=== PATIENT | male | born 1995 | race Hispanic/Latino ===

== ENCOUNTER 2019-09-28 22:35 | Emergency (ER) | payer OTHER ==
[~2019-09-28] VITALS: Ht 188 cm; Wt 61.2 kg
--- NOTE | 2019-09-28 23:00 | Emergency Department Note ---
History of Present Illnes History of Present Illness Chief Complaint: Extremity Trauma/Pain History of Present Illness This is a 23 year old male, with no significant past medical history, who states that he was out with friends this evening, became angry, and hit a metal light post with his right hand. He presents with pain, swelling, and a small laceration of the dorsum of the right hand. The injury occurred approximately 1 hour prior presentation. Patient has not taken anything for the pain. He denies any previous broken bones, or injuries due to lack of anger management. Historian: Patient Arrival Mode: Car Feed Adviser Required: No Onset (how long ago): hour(s) (1) Location: right hand Quality: pain, swelling Radiation: Reports non-radiation Severity: moderate Onset quality: sudden Duration (how long): hour(s) (1) Timing of current episode: constant Progression: unchanged Chronicity: new Context: Reports trauma/injury (see HPI) Relieving factors: none Exacerbating factors: none Associated symptoms: Reports denies other symptoms Treatments prior to arrival: none Past Medical/Family History Physician Review I have reviewed the patient's past medical and family history. Any updates have been documented here. Past Medical History Recent Fever: No Clinical Suspicion of Infectio: No New/Unexplained Change in Ment: No Other Medical History: - Spontaneous Pneumothorax x 3, in 2019 Other Surgery: ? Surgery on lungs, due to PTX Social History Smoking Cessation: Never Smoker Alcohol Use: Occasional Any Illegal Drug Use: No TB Exposure/Symptoms: No Physically hurt or threatened: No Family History Family history of heart diseas: No Other Last Tetanus: 8 years ago Any Pre-Existing Lines (PICC,: No Is patient up to date on immun: Yes Review of Systems Review of Systems Constitutional: Denies chills, Denies fever EENTM: Reports no symptoms Cardiovascular: Reports no symptoms Respiratory: Reports no symptoms Gastrointestinal: Reports no symptoms Musculoskeletal: Reports as per HPI Integumentary: Reports other (small laceration on the dorsum of the right mid- hand, between the 4th and 5th metacarpals) Neurological: Denies numbness, Denies paresthesia, Denies tingling, Denies weakness Psychological: Reports no symptoms Hematological/Lymphatic: Reports no symptoms Review of other systems: All other systems negative Physical Exam Related Data Allergies: Coded Allergies: No Known Allergies (Unverified , 09/29/19) Vital signs reviewed: Yes Physical Exam CONSTITUTIONAL Constitutional: Present well-developed, Present well-nourished HENT HENT: Present normocephalic, Present atraumatic, Present oropharynx clear/moist, Present nose normal HENT L/R: Present left ext ear normal, Present right ext ear normal EYES Eyes: Reports PERRL, Reports conjunctivae normal NECK Neck: Present ROM normal PULMONARY Pulmonary: Present effort normal, Present breath sounds normal CARDIOVASCULAR Cardiovascular: Present regular rhythm, Present heart sounds normal, Present capillary refill normal, Present normal rate GASTROINTESTINAL GENITOURINARY SKIN Skin: Present warm, Present dry, Present other (4 mm horizontal, superficial lac, on dorsum of right hand, between the 4th and 5th metacarpals, with no tissue or bone exposed) MUSCULOSKELETAL Musculoskeletal: Present deformity (4th and 5th MCPs depressed, with surrounding soft tissue swelling, ecchymosis and ttp; ), Present tenderness, Present swelling; Absent ROM normal (unable to fully flex the right 4th and 5th metacarpals;) NEUROLOGICAL Neurological: Present alert, Present oriented x 3, Present no gross motor or sensory deficits PSYCHOLOGICAL Psychological: Present mood/affect normal, Present judgement normal Results Imaging Imaging results reviewed: Yes Imaging Comments [place] [id number] Patient Name: PEARL RONQUILLO MR #: [id number] : 1995 Age/Sex: 23/M Req #: [id number] Adm Physician: Ordered by: SHERIDAN JOLLEY MD Report #: [id number] Location: [facility] Room/Bed: Procedure: [id number] HOPD/HAND 3 VIEW RT - HOPD Exam Date: 09/28/19 Exam Time: 2305 REPORT STATUS: Signed X-ray right hand 3 views HISTORY: Pain. COMPARISON: None available. FINDINGS: Bones: Mildly displaced fifth metacarpal shaft fracture and minimally displaced fourth metacarpal shaft fracture. Joints: The joint spaces are well-maintained. Soft tissues: Soft tissue swelling about the hand. IMPRESSION: Mildly displaced fifth metacarpal shaft fracture and minimally displaced fourth metacarpal shaft fracture. Signed by: Yosvany Medina DO on 09/28/2019 11:31 PM Dictated By: YOSVANY MEDINA DO 30 Transcribed By: ZI on 09/28/192330 COPY TO: SHERIDAN JOLLEY MD~ Procedures Procedures Procedure: 23:35 - boxer splint was applied by Nando Mcnally RN, with good placement. Splint was checked by me, and patient was neurovascular intact. A sling was also applied, and patient was comfortable. Patient tolerated procedure well. Assessment & Plan Medical Decision Making MDM - Patient received a dose of Ancef 1 g IM, due to the small, open wound on the dorsum of the right hand. There was no bony protrusion or soft tissue expulsion at this site. It appears to occurred to the force of the blow to the right hand. He will complete a course of cephalexin, as well. Infection precautions were discussed. - For pain, you may take the Tylenol with codeine, as prescribed. You may take Ibuprofen 200 mg3 tablets every 6 hours as needed for breakthrough pain. - Contact either Hand Surgery or Orthopedic Surgery TOMORROW, [phone] for a follow-up appointment for definitive management of the fractures in the right hand. This is VERY important! - Complete all of the antibiotics prescribed, for the open cut on the right hand. Follow-up if you develop any fever, chills, or worsening hand pain. - Keep the right hand elevated to the level of the heart, as much as possible, to help with pain and swelling. Reassessment Reassessment - Wound on the dorsum of the right hand was thoroughly cleaned using chlorhexidine, dry, bacitracin applied, followed by a Band-Aid. -Boxer Splint was placed on the right hand and forearm by Nando Mcnally RN, see the splint note. Assessment & Plan Final Impression: (1) Fracture of shaft of fourth metacarpal bone of right hand (2) Fracture of shaft of fifth metacarpal bone of right hand (3) Laceration of right hand (4) Hand pain, right Depart Disposition: HOME, SELF-detention Meds Active Scripts Cephalexin (CEPHALEXIN) 500 Mg Capsule, 500 MG PO TID for infection for 10 Days, #30 CAP 0 Refills Prov:SHERIDAN JOLLEY MD 09/29/19 Acetaminophen With Codeine (TYLENOL WITH CODEINE #3 TABLET) 1 Each Tablet, 1-2 TAB PO Q6H PRN for pain, #20 TAB 0 Refills DO NOT take and drive or operate machinery. Prov:SHERIDAN JOLLEY MD 09/29/19 SHERIDAN JOLLEY MD Sep 28, 2019 23:00
[2019-09-28] MEDS ORDERED: IBUPROFEN 600 MG TAB PO STA (23:01)
[2019-09-28] MEDS ORDERED: IBUPROFEN 600 MG TAB ONE (23:34)
--- NOTE | 2019-09-28 23:34 | Diagnostic Imaging Report ---
X-ray right hand 3 views HISTORY: Pain. COMPARISON: None available. FINDINGS: Bones: Mildly displaced fifth metacarpal shaft fracture and minimally displaced fourth metacarpal shaft fracture. Joints: The joint spaces are well-maintained. Soft tissues: Soft tissue swelling about the hand. IMPRESSION: Mildly displaced fifth metacarpal shaft fracture and minimally displaced fourth metacarpal shaft fracture. Signed by: Yosvany Medina DO on 09/28/2019 11:31 PM
[2019-09-28] MEDS ORDERED: NEOMYCIN/POLYMYX/BACITR OINT 0.9 GM PKT ONE (23:35)
--- OUTSIDE RECORDS SUMMARY | 2019-09-28 23:35 | XMS REPORT | Continuity of Care Document ---
Author Author [employer] PEARL Whitlock MA Organization [facility] Address Unknown Phone Unavailable Care Team Providers Care Registered Nurses Name Role Phone [employer] Unavailable Un available Problems Problem Status Onset Date Classification Date Reported Comments Source Pneumohemothorax Active 12/24/2012 [facility] Medications Medication Details Route Status Patient Instructions Ordering Provider Order Date Source No Reported Medications (Acti ve) Active [facility] Allergies, Adverse Reactions, Alerts Substance Category Reaction Severity Reaction type Status Date Reported Comments Source No Known Drug Allergies drug a llergy drug aller gy Active [facility] Immunizations No Data Provided for This Section Results No Data Provided for This Section Pathology Reports No Data Provided for This Section Diagnostic Reports No Data Provided for This Section Consultation Notes No Data Provided for This Section Discharge Summaries No Data Provided for This Section History and Physicals No Data Provided for This Section Vital Signs No Data Provided for This Section Encounters Location Location Details Encounter Type Encounter Number Reason For Visit Attending Provider ADM Date DC Date Status Source AUDIT [id number] 12/24/2012 12/24/2012 [facility] Procedures No Data Provided for This Section Assessment and Plan No Data Provided for This Section Plan of Care No Data Provided for This Section Social History Social History Date Source Never A Smoker (Active) 12/24/2012 [facility] Family History No Data Provided for This Section Advance Directives Order Name Results Value Date Source Advance Directives Advance Dir ectives No Advance Directives available. 12/24/2012 [facility] Functional Status No Data Provided for This Section
--- OUTSIDE RECORDS SUMMARY | 2019-09-28 23:36 | XMS REPORT | Continuity of Care Document ---
Author Author [facility] t Organization [facility] Address [address] [place] [address] Phone Unavailable Care Team Providers Care Health Safety Manager Name Role Phone TRINIDADBENJAMINTatiana Raychristiana Unavailable Payers Payer Name Policy Type Policy Number Effective Date Expiration Date S ource Problems Condition Name Condition Details Condition Category Status Onset Date Resolution Date Last Treatment Date Treating Clinician Comments Source Pneumohemothorax Pneu mohemothorax Active 12/24/2012 [facility] Problem Active 2012-12-24 07:55:08 M ryan Boo Allergies, Adverse Reactions, Alerts Allergy Name Allergy Type Status Severity Reaction(s) Onset Date Inacti ve Date Treating Clinician Comments Source BLOOD DA Active U 2018-07-22 00:00:00 [facility] No Known Allergies DA Active U 2018-07-22 00:00:00 [facility] NKDA DA Active U 2018-07-22 00:00:00 [facility] BLOOD. PT IS LATTER-DAY AND CAN'T GET TRANSFUSION DA A ctive U 2018-07-18 00:00:00 [facility] No Known Allergies DA Active U 2018-07-16 00:00:00 [facility] No Known Drug Allergies No Known Drug Allergies Active [facility] Rajeev Social History Social Habit Start Date Stop Date Quantity Comments Source Social History 2012-12-24 07:55:08 2012-12-24 07:55:08 [facility] Medications Ordered Medication Name Filled Medication Name Start Date Stop Da te Current Medication? Ordering Clinician Indication Dosage Frequency Signature (SIG) Comments Components Source No Reported Medications 2012-12-24 07:55:08 Yes (Active) Joao Boo Procedures This patient has no known procedures. Encounters Start Date/Time End Date/Time [facility]counter Type [facility] ID Source 2019-02-10 22:27:00 2019-02-10 22:27:00 Emergency E [facility] [id number] [facility] 2012-12-24 01:55:08 2012-12-24 01:55:[address] [facility] [id number] Results Test Description Test Time Test Comments Results Result Comments Source HAND 3 VIEW RT - HOPD 2019-09-28 23:30:00 [facility] [address] [place] [address] Patient Name: PEARL RONQUILLO MR #: [id number] : 1995 Age/Sex: 23/M Req #: [id number] Adm Physician: Ordered by: SHERIDAN JOLLEY MD Report #: [id number] Location: [facility] Room/Bed: Procedure: [id number] HOPD/HAND 3 VIEW RT - HOPD Exam Date: 09/28/19 Exam Time: 2305 REPORT STATUS: Signed X-ray right hand 3 views HISTORY: Pain. COMPARISON: None available. FINDINGS: Bones: Mildly displaced fifth metacarpal shaft fracture and minimally displaced fourth metacarpal shaft fracture. Joints: The joint spaces are well-maintained. Soft tissues: Soft tissue swelling about the hand. IMPRESSION: Mildly displaced fifth metacarpal shaft fracture and minimally displaced fourth metacarpal shaft fracture. Signed by: Yosvany Elizalde DO on 09/28/2019 11:31 PM Dictated By: YOSVANY ELIZALDE DO 30 Transcribed By: ZI on 09/28/192330 COPY TO: SHERIDAN JOLLEY MD SURGICAL SPECIMENS 2018-07-24 10:43:00 RUN DATE: 07/24/18 [facility] *LIVE* PAGE 1 RUN TIME: 1043 Specimen Inquiry RUN USER: INTERFACE PATIENT: PEARL FERRARA LOC: Radha.CVN1 U #: [id number] AGE/SX: 22/M ROOM: [facility] RE07/17/18REG DR: Cole Cordoba MD : [birth year] BED: 1 DIS: 07/23/18 STATUS: DIS IN TLOC: SPEC #: [id number] RECD: 07/22/18 STATUS: [place] SNEED #: [id number] CAS: 07/22/18 [facility] [address]: Cole Cordoba MD ENTERED: 07/24/18 SP TYPE: SURG SPEC OTHR DR: No Primary or Family Physician Self Referred Leonel Oro MD, Kevin MD Terminella, Luigi MDORDERED: GM LEVEL 4 CODES: [id number] - LUNG, NOS COPIES TO: No Primary or Family Physician Self Referred Leonel Oro MD [address] [place] [address] Nav Washburn MD [address] [place] [address] Marcus Benavidez MD [address] [place] [address] Cole Cordoba MD [address] [place] [address] PROCEDURES: GM LEVEL 4 (Incomplete) TISSUES: 1. LUNG, NOS - Lung, right pleura, excision CONTINUED ON NEXT PAGE RUN DATE: 07/24/18 [facility] *LIVE* PAGE 2 RUN TIME: 1043 Specimen Inquiry RUN USER: INTERFACE SPEC #: [id number] PATIENT: PEARL FERRARA #[id number] (Continued) FINAL DIAGNOSIS Lung, right pleura, excision: Dense fibrous tissue with mild inflammation and some fibrosis. GROSS AND MICROSCOPIC GROSS EXAMINATION: Received in formalin labeled right pleura is a 5.2 cm aggregate of purple frankel smooth fibrous tissue with attached adipose. Submitted (A)-(B). MICROSCOPIC EXAMINATION: Sections of the lung pleura reveal dense fibrous tissue with mild inflammation including some eosinophils consistent with history of pneumothorax. POST-OP DIAGNOSIS None given PRE-OP DIAGNOSIS Spontaneous pneumothorax Signed SIGNATURE ON FILE LupeCornell Baca DO 07/24/18 1043 END OF REPORT - XR CHEST 1 V 2018-07-23 05:38:00 FAX: Fang Alicia [phone] [place]: St: ADM FAX: Cole Al MD [phone] Name: PEARL FERRARA [facility] : 1995 Age/S: 22/M [address] [place] [address] Unit #: [id number] Loc: [address] [place] [address] Phys: Yudith Alicia NP Acct: [id number] Dis Date: Status: ADM IN PHONE #: [phone] Exam Date: 07/23/2018519 FAX #: [phone] Reason: S/P Thoracotomy EXAMS: CPT CODE: [id number] XR CHEST 1 V 50477 PROCEDURE: Chest, AP on 07/23/2018 at 0442 hours. INDICATION: Status post thoracotomy. Recurrent spontaneous right-sided pneumothorax. COMPARISON: Chest radiographs dated 07/22/2018. FINDINGS: Support tubes, catheters, devices: Large bore right-sided chest tubes have been removed. Small right pneumothorax is stable. The pneumothorax within the right upper chest measures 16 mm in thickness. Right perihilar and basilar density is stable. Left lung is clear. There is stable mild density in the right apical lung. Cardiac silhouette is not enlarged. Stable mediastinum. IMPRESSION: 1. Right-sided large bore chest tubes have been removed. Stable small right pneumothorax. 2. Stable opacities within the right lower chest and right apical lung. SL: MAXIMINO at 0538 Reported and signed by: Ronny Iglesias M.D. CC: Yudith Alicia NP; Cole Cordoba MD Technologist: Mike Clarke, RT(R); Susana Gracia RT(R) Trnscrd Date/Time/By: 07/23/2018 (0538) : By: [email or web address] Orig Print D/T: S: 07/23/2018 (0550) PAGE 1 Signed Report - XR CHEST 1 V 2018-07-22 14:09:00 FAX: Fang Alicia [phone] [place]: St: ADM FAX: Cole Al MD [phone] Name: PEARL FERRARA [facility] : 1995 Age/S: 22/M [address] [place] [address] Unit #: [id number] Loc: [address] [place] [address] Phys: Yudith Alicia NP Acct: [id number] Dis Date: Status: ADM IN PHONE #: [phone] Exam Date: 07/22/2018 1409 FAX #: [phone] Reason: F/U PNEUMOTHORAX EXAMS: CPT CODE: [id number] XR CHEST 1 V 34011 Clinical Indication: Follow-up pneumothorax Comparison: Chest radiograph performed earlier today FINDINGS: Stable position of 2 right-sided chest tubes. Stable small right hydropneumothorax with postsurgical changes at the right lung apex. Right basilar airspace opaci ty likely represents atelectasis. The left lung is clear. The cardiac silhouette is within normal limits of size. Midline trachea. No acute osseous abnormalities. IMPRESSION: Stable small right hydropneumothorax. SL: WR2-H at 1409 Reported and signed by: Solitario Stevens M.D. CC: Yudith Dukes NP; Cole Cordoba MD Technologist: Stewart Castellon RT(R) Trnscrd Date/Time/By: 07/22/2018 (9398) : By: [email or web address] Orig Print D/T: S: 07/22/2018 (0179) PAGE 1 Signed Report - XR CHEST 1 V 2018-07-22 09:08:00 FAX: Fang Alicia [phone] [place]: St: ADM FAX: Cole Al MD [phone] Name: PEARL FERRARA [facility] : 1995 Age/S: 22/M [address] [place] [address] Unit #: [id number] Loc: [address] [address] Phys: Yudith Alicia NP Acct: [id number] Dis Date: Status: ADM IN PHONE #: [phone] Exam Date: 07/22/2018 0549 FAX #: [phone] Reason: S/P Thoracotomy EXAMS: CPT CODE: [id number] XR CHEST 1 V 18061 EXAM: XR CHEST 1 VIEW DATE: 07/22/2018 5:00 AM : 1995; Age: 22 years y/o Male INDICATION: S/P Thoracotomy COMPARISON: July 21, 2018 TECHNIQUE: AP chest. FINDINGS/ IMPRESSION: Lines, tubes and hardware: Stable right-sided chest tubes. Heart, mediastinum and lungs: The heart size is normal for technique. The mediastinal contours are normal. Pulmonary vascularity is normal. Stable small right apical pneumothorax. Right lung base and right apical atelectatic changes. SL: [id number] at 0908 Reported and signed by: Peter Duque D.O. CC: Yudith Alicia NP; Cole Cordoba MD Technologist: Mike Clarke, RT(R); Susana Gracia RT(R) Trnscrd Date/Time/By: 07/22/2018 (08) : By: [email or web address] Orig Print D/T: S: 07/22/2018 (1551) PAGE 1 Signed Report - XR CHEST 1 V 2018-07-22 09:07:00 FAX: Fang Alicia [phone] [place]: St: [facility] FAX: Cole Al MD [phone] Name: PEARL FERRARA [facility] : 1995 Age/S: 22/M [address] [place] [address] Unit #: [id number] Loc: G.[address] [place] [address] Phys: Yudith Alicia NP Acct: [id number] Dis Date: Status: ADM IN PHONE #: [phone] Exam Date: 07/22/2018 0908 FAX #: [phone] Reason: F/U PNEUMO. EXAMS: CPT CODE: [id number] XR CHEST 1 V 19283 EXAM: XR CHEST 1 VIEW DATE: 07/22/2018 12:00 PM : 1995; Age: 22 years y/o Male INDICATION: F/U PNEUMO. COMPARISON: July 22, 2018 at 451 TECHNIQUE: AP chest. FINDINGS/ IMPRESSION: Lines, tubes and hardware: Stable right- sided chest tubes. Heart, mediastinum and lungs: The heart size is normal for technique. The mediastinal contours are normal. Pulmonary vascularity is normal. Stable small right apical pneumothorax. Right lung base and right apical atelectatic changes. SL: [id number] at 0907 Reported and signed by: Peter Duque D.O. CC: Yudith Alicia MAINTENANCE WORKER; Cole Cordoba MD Technologist: Annette Mccauley RT(R) Trnscrd Date/Time/By: 07/22/2018 (0907) : By: [email or web address] Orig Print D/T: S: 07/22/2018 (1667) PAGE 1 Signed Report BASIC METABOLIC PANEL 2018-07-22 07:40:00 Test Item SODIUM (test code = NA) 137 mEq/L 134-147 N POTASSIUM (test code = K) 4.0 mEq/L 3.4-5.0 N CHLORIDE (test code = CL) 103 mEq/L 100-108 N CARBON DIOXIDE (test code = CO2) 29 mEq/L 21-33 N ANION GAP (test code = GAP) 9 0-20 N GLUCOSE (test code = GLU) 87 mg/dL 70-110 N BLOOD UREA NITROGEN (test code = BUN) 10 mg/dL 7-18 N GLOMERULAR FILTRATION RATE (test code = GFR) 143.8 110-120 H Units of measure = ml/min/1.73 m2 CREATININE (test code = CREAT) 0.7 mg/dL 0.6-1.3 N CALCIUM (test code = CA) 8.6 mg/dL 8.0-10.5 N CBC W/AUTO [id number] 06:50:00* Test Item Value Reference Range Interpretation Comments WHITE BLOOD CELL (test code = WBC) 11.13 x10 3/uL 4.5-11.0 H RED BLOOD CELL (test code = RBC) 4.47 x10 6/uL 4.00-5.60 N HEMOGLOBIN (test code = HGB) 13.9 g/dL 12.5-16.9 N HEMATOCRIT (test code = HCT) 41.5 % 37.5-50.7 N MEAN CELL VOLUME (test code = MCV) 92.8 fL 81.0-99.0 N MEAN CELL HGB (test code = MCH) 31.1 pg 27.0-33.0 N MEAN CELL HGB CONCETRATION (test code = MCHC) 33.5 g/dL 33.0-37. 0 N RED CELL DISTRIBUTION WIDTH CV (test code = RDW) 12.7 % 11.5- 14.5 N RED CELL DISTRIBUTION WIDTH SD (test code = RDW-SD) 43.8 fL 37 .0-54.0 N PLATELET COUNT (test code = PLT) 232 x10 3/uL 150-400 N MEAN PLATELET VOLUME (test code = MPV) 9.3 fL 7.0-9.0 H NEUTROPHIL % (test code = NT%) 64.2 % 56.0-77.0 N IMMATURE GRANULOCYTE % (test code = IG%) 0.4 % 0.0-2.0 N LYMPHOCYTE % (test code = LY%) 19.4 % 14.0-32.0 N MONOCYTE % (test code = MO%) 11.9 % 4.8-9.0 H EOSINOPHIL % (test code = EO%) 3.7 % 0.3-3.7 N BASOPHIL % (test code = BA%) 0.4 % 0.0-2.0 N NUCLEATED RBC % (test code = NRBC%) 0.0 % 0-0 N NEUTROPHIL # (test code = NT#) 7.14 x10 3/uL 2.0-7.6 N IMMATURE GRANULOCYTE # (test code = IG#) 0.04 x10 3/uL 0.00-0.03 H LYMPHOCYTE # (test code = LY#) 2.16 x10 3/uL 1.0-3.8 N MONOCYTE # (test code = MO#) 1.33 x10 3/uL 0.1-0.8 H EOSINOPHIL # (test code = EO#) 0.41 x10 3/uL 0.0-0.2 H BASOPHIL # (test code = BA#) 0.05 x10 3/uL 0.0-0.2 N NUCLEATED RBC # (test code = NRBC#) 0.00 x10 3/uL 0.0-0.1 N MANUAL DIFF REQUIRED (test code = MDIFF) NO - XR CHEST 1 [id number] 08:03:00 FAX: Fang Alicia [phone] [place]: St: ADM FAX: Cole Al MD [phone] Name: ALEM,PEARL [facility] : 1995 Age/S: 22/M [address] [place] [address] Unit #: [id number] Loc: [address] [place] [address] Phys: Yudith Alicia MAINTENANCE WORKER Acct: [id number] Dis Date: Status: ADM IN PHONE #: [phone] Exam Date: 07/21/2018 0647 FAX #: [phone] Reason: S/P Thoracotomy EXAMS: CPT CODE: [id number] XR CHEST 1 V 53992 Chest single view 07/21/2018 HISTORY: Status post thoracotomy Comparison is made to 07/20/2018 FINDINGS: The right apical pneumothorax is unchanged. There is a new airspace opacity in the right lung apex. Left lung remains clear. Heart size is within normal limits. Aorta is unchanged. No interstitial edema is noted. Right chest tubes are stable. IMPRESSION: 1. Stable right apical pneumothorax. 2. New small opacity in right lung apex. This may represent atelectasis or pneumonia. SL: [id number] at 0803 Rep orted and signed by: Buck Malik M.D. CC: Yudith Andrade MAINTENANCE WORKER; Cole Cordoba MD Technologist: Emely Elliott, RT(R); Linda Granados, RT(R) Trnazrd Date/Time/By: 07/21/2018 (0803) : By: [email or web address] Orig Print D/T: S: 07/21/2018 (805) PAGE 1 Signed Report BASIC METABOLIC [id number] 05:16:00* Test Item Value Reference Range Interpretation Comments SODIUM (test code = NA) 137 mEq/L 134-147 N POTASSIUM (test code = K) 3.8 mEq/L 3.4-5.0 N CHLORIDE (test code = CL) 102 mEq/L 100-108 N CARBON DIOXIDE (test code = CO2) 30 mEq/L 21-33 N ANION GAP (test code = GAP) 9 0-20 N GLUCOSE (test code = GLU) 102 mg/dL 70-110 N BLOOD UREA NITROGEN (test code = BUN) 10 mg/dL 7-18 N GLOMERULAR FILTRATION RATE (test code = GFR) 143.8 110-120 H Units of measure = ml/min/1.73 m2 CREATININE (test code = CREAT) 0.7 mg/dL 0.6-1.3 N CALCIUM (test code = CA) 8.6 mg/dL 8.0-10.5 N CBC W/AUTO [id number] 04:39:00* Test Item Value Reference Range Interpretation Comments WHITE BLOOD CELL (test code = WBC) 10.84 x10 3/uL 4.5-11.0 N RED BLOOD CELL (test code = RBC) 4.61 x10 6/uL 4.00-5.60 N HEMOGLOBIN (test code = HGB) 14.5 g/dL 12.5-16.9 N HEMATOCRIT (test code = HCT) 42.3 % 37.5-50.7 N MEAN CELL VOLUME (test code = MCV) 91.8 fL 81.0-99.0 N MEAN CELL HGB (test code = MCH) 31.5 pg 27.0-33.0 N MEAN CELL HGB CONCETRATION (test code = MCHC) 34.3 g/dL 33.0-37. 0 N RED CELL DISTRIBUTION WIDTH CV (test code = RDW) 12.7 % 11.5- 14.5 N RED CELL DISTRIBUTION WIDTH SD (test code = RDW-SD) 42.8 fL 37 .0-54.0 N PLATELET COUNT (test code = PLT) 206 x10 3/uL 150-400 N MEAN PLATELET VOLUME (test code = MPV) 9.1 fL 7.0-9.0 H NEUTROPHIL % (test code = NT%) 62.0 % 56.0-77.0 N IMMATURE GRANULOCYTE % (test code = IG%) 0.2 % 0.0-2.0 N LYMPHOCYTE % (test code = LY%) 20.0 % 14.0-32.0 N MONOCYTE % (test code = MO%) 14.7 % 4.8-9.0 H EOSINOPHIL % (test code = EO%) 2.7 % 0.3-3.7 N BASOPHIL % (test code = BA%) 0.4 % 0.0-2.0 N NUCLEATED RBC % (test code = NRBC%) 0.0 % 0-0 N NEUTROPHIL # (test code = NT#) 6.73 x10 3/uL 2.0-7.6 N IMMATURE GRANULOCYTE # (test code = IG#) 0.02 x10 3/uL 0.00-0.03 N LYMPHOCYTE # (test code = LY#) 2.17 x10 3/uL 1.0-3.8 N MONOCYTE # (test code = MO#) 1.59 x10 3/uL 0.1-0.8 H EOSINOPHIL # (test code = EO#) 0.29 x10 3/uL 0.0-0.2 H BASOPHIL # (test code = BA#) 0.04 x10 3/uL 0.0-0.2 N NUCLEATED RBC # (test code = NRBC#) 0.00 x10 3/uL 0.0-0.1 N MANUAL DIFF REQUIRED (test code = MDIFF) NO - XR CHEST 1 [id number] 09:19:00 FAX: Fang Alicia [phone] [place]: St: ADM FAX: Cole Al MD [phone] Name: ALEM,PEARL [facility] : 1995 Age/S: 22/M [address] [place] [address] Unit #: [id number] Loc: [address] [place] [address] Phys: Yudith Alicia MAINTENANCE WORKER Acct: [id number] Dis Date: Status: ADM IN PHONE #: [phone] Exam Date: 07/20/2018 0709 FAX #: [phone] Reason: S/P Thoracotomy EXAMS: CPT CODE: [id number] XR CHEST 1 V 93820 Chest single view 07/20/2018 HISTORY: Thoracotomy Comparison is made to 07/19/2018 FINDINGS: 2 right chest tubes are stable. Right apical pneumothorax is unchanged. Medial right base atelectasis/infiltrate is unchanged. Left lung is clear. Heart size is normal. Aorta is within normal limits. No vascular congestion is noted. IMPRESSION: 1. Stable right apical pneumothorax. 2. Stable right chest tubes. 3. Stable medial right base atele ctasis/infiltrate. SL: [id number] Elect ronically Signed by Jesus Malik on 2018 at 0919 Reported and signed by: Buck Malik M.D. CC: Yudith Alicia MAINTENANCE WORKER; Cole Cordboa MD Technologist: Emely Elliott, RT(R); Linda Granados, RT(R) Trnscrd Date/Time/By: 07/20/2018 (918) : By: [email or web address] Orig Pr int D/T: S: 07/20/2018 (7400) PAGE 1 Signed Report BASIC METABOLIC [id number] 05:04:00* Test Item Value Reference Range Interpretation Comments SODIUM (test code = NA) 135 mEq/L 134-147 N POTASSIUM (test code = K) 3.6 mEq/L 3.4-5.0 N CHLORIDE (test code = CL) 102 mEq/L 100-108 N CARBON DIOXIDE (test code = CO2) 28 mEq/L 21-33 N ANION GAP (test code = GAP) 9 0-20 N GLUCOSE (test code = GLU) 107 mg/dL 70-110 N BLOOD UREA NITROGEN (test code = BUN) 11 mg/dL 7-18 N GLOMERULAR FILTRATION RATE (test code = GFR) 123.2 110-120 H Units of measure = ml/min/1.73 m2 CREATININE (test code = CREAT) 0.8 mg/dL 0.6-1.3 N CALCIUM (test code = CA) 8.5 mg/dL 8.0-10.5 N CBC W/AUTO [id number] 04:48:00* Test Item Value Reference Range Interpretation Comments WHITE BLOOD CELL (test code = WBC) 13.43 x10 3/uL 4.5-11.0 H RED BLOOD CELL (test code = RBC) 4.79 x10 6/uL 4.00-5.60 N HEMOGLOBIN (test code = HGB) 15.0 g/dL 12.5-16.9 N HEMATOCRIT (test code = HCT) 43.2 % 37.5-50.7 N MEAN CELL VOLUME (test code = MCV) 90.2 fL 81.0-99.0 N MEAN CELL HGB (test code = MCH) 31.3 pg 27.0-33.0 N MEAN CELL HGB CONCETRATION (test code = MCHC) 34.7 g/dL 33.0-37. 0 N RED CELL DISTRIBUTION WIDTH CV (test code = RDW) 12.4 % 11.5- 14.5 N RED CELL DISTRIBUTION WIDTH SD (test code = RDW-SD) 41.5 fL 37 .0-54.0 N PLATELET COUNT (test code = PLT) 227 x10 3/uL 150-400 N MEAN PLATELET VOLUME (test code = MPV) 9.4 fL 7.0-9.0 H NEUTROPHIL % (test code = NT%) 69.3 % 56.0-77.0 N IMMATURE GRANULOCYTE % (test code = IG%) 0.6 % 0.0-2.0 N LYMPHOCYTE % (test code = LY%) 15.3 % 14.0-32.0 N MONOCYTE % (test code = MO%) 14.3 % 4.8-9.0 H EOSINOPHIL % (test code = EO%) 0.3 % 0.3-3.7 N BASOPHIL % (test code = BA%) 0.2 % 0.0-2.0 N NUCLEATED RBC % (test code = NRBC%) 0.0 % 0-0 N NEUTROPHIL # (test code = NT#) 9.30 x10 3/uL 2.0-7.6 H IMMATURE GRANULOCYTE # (test code = IG#) 0.08 x10 3/uL 0.00-0.03 H LYMPHOCYTE # (test code = LY#) 2.06 x10 3/uL 1.0-3.8 N MONOCYTE # (test code = MO#) 1.92 x10 3/uL 0.1-0.8 H EOSINOPHIL # (test code = EO#) 0.04 x10 3/uL 0.0-0.2 N BASOPHIL # (test code = BA#) 0.03 x10 3/uL 0.0-0.2 N NUCLEATED RBC # (test code = NRBC#) 0.00 x10 3/uL 0.0-0.1 N MANUAL DIFF REQUIRED (test code = MDIFF) NO - XR CHEST 1 [id number] 13:48:00 FAX: Leonel Rey [phone] [place]: St: ADM FAX: Cole Al MD [phone] Name: PEARL FERRARA [facility] : 1995 Age/S: 22/M [address] [place] [address] Unit #: [id number] Loc: [address] [address] Phys: Leonel Oro MD Acct: [id number] Dis Date: Status: ADM IN PHONE #: [phone] Exam Date: 07/19/2018 1255 FAX #: [phone] Reason: S/P VATS EXAMS: CPT CODE: [id number] XR CHEST 1 V 95064 EXAM: XR CHEST 1 VIEW DATE: 07/19/2018 12:13 PM : 1995; Age: 22 years y/o Male INDICATION: S/P VATS COMPARISON: July 18, 2018 TECHNIQUE: AP chest. FINDINGS/ IMPRESSION: Lines, tubes and hardware: Two separate right- sided chest tubes are seen with tip overlying the right medial upper thorax and right mid thorax. Heart, mediastinum and lungs: The heart size is normal for technique. The mediastinal contours are normal. Interval significant improvement in the aeration of the right lung, status post VATS. Small opacity is noted involving the right lung apex, which may represent atelectasis. Minimal right lung base airspace disease. No significant right pneumothorax is seen. SL: [id number] at 1406 Reported and signed by: Peter Duque D.O. CC: Leonel Oro MD; Cole Cordoba MD Technologist: RT Daniel(R) Trnscrd Date/Time/By: 07/19/2018 (3655) : By: [email or web address] Orig Print D/T: S: 07/19/2018 (1023) PAGE 1 Signed Report BASIC METABOLIC [id number] 13:03:00* Test Item Value Reference Range Interpretation Comments SODIUM (test code = NA) 138 mEq/L 134-147 N POTASSIUM (test code = K) 4.1 mEq/L 3.4-5.0 N CHLORIDE (test code = CL) 105 mEq/L 100-108 N CARBON DIOXIDE (test code = CO2) 26 mEq/L 21-33 N ANION GAP (test code = GAP) 11 0-20 N GLUCOSE (test code = GLU) 114 mg/dL 70-110 H BLOOD UREA NITROGEN (test code = BUN) 9 mg/dL 7-18 N GLOMERULAR FILTRATION RATE (test code = GFR) 107.6 110-120 L Units of measure = ml/min/1.73 m2 CREATININE (test code = CREAT) 0.9 mg/dL 0.6-1.3 N CALCIUM (test code = CA) 8.5 mg/dL 8.0-10.5 N HGB [id number] 12:56:00* Test Item Value Reference Range Interpretation Comments HEMOGLOBIN (test code = HGB) 16.3 g/dL 12.5-16.9 N HEMATOCRIT (test code = HCT) 47.6 % 37.5-50.7 N COMMENTS: On admissionARTERIAL BLOOD [id number] 12:35:00* Test Item Value Reference Range Interpretation Comments ARTERIAL BLOOD GAS PH (test code = PHA) 7.302 7.35-7.45 L ARTERIAL BLOOD GAS PCO2 (test code = PCO2A) 49.5 mmHg 35-45 H ARTERIAL BLOOD GAS PO2 (test code = PO2A) 66 mmHg 80-100 L BICARBONATE TOTAL HCO3 (test code = HCO3) 24.5 mmol/L 22.0-26.0 N BASE EXCESS (test code = PAUL) -2.0 mmol/L -4-4 N ABG O2 SATURATION (test code = SATA) 91 % 90-100 N ABG DELIVERY (test code = ADILIA) Room Air Performed by certified band scroll saw operator at [facility] ABG TEMPERATURE (test code = TEMPA) 98.0 F ABG SITE (test code = SITEA) Art line TCO2 ARTERIAL (test code = TCO2A) 26 PROTHROMBIN [id number] 09:06:00* Test Item Value Reference Range Interpretation Comments PROTHROMBIN TIME PATIENT (test code = PTP) 14.0 SECONDS 9.3-12.9 H INTERNATIONAL NORMAL RATIO (test code = INR) 1.2 0.8-1.2 N TARGET INR BY INDICATION Indication INR1. Prophylaxis of venous thrombosis 2.0 - 3.0 (orthopedic surgery), Prophylaxis of venous thrombosis (other than high-risk surgery), Treatment of Deep Vein Thrombosis/Pulmonary Embolism, Prevention of systemic embolism - Tissue heart valves, Acute Myocardial Infarction (to prevent systemic embolism), Valvular heart disease, Atrial Fibrillation, Bileaflet mechanical valve in aortic position.2. Mechanical prosthetic valves (high risk), 2.5 - 3.5 Presence of Lupus Anticoagulant or Antiphospholipid Antibodies, Prevention of systemic embolism - Acute Myocardial Infarction (to prevent recurrent infarct). THROMBOPLASTIN TIME [id number] 09:06:00* Test Item Value Reference Range Interpretation Comments THROMBOPLASTIN TIME PARTIAL (test code = PTT) 29.9 Seconds 25.0-39. 5 N Therapeutic Range: 50.4 - 88.3 Seconds Effective 05/21/2018 BASIC METABOLIC [id number] 09:06:00* Test Item Value Reference Range Interpretation Comments SODIUM (test code = NA) 135 mEq/L 134-147 N POTASSIUM (test code = K) 3.9 mEq/L 3.4-5.0 N CHLORIDE (test code = CL) 100 mEq/L 100-108 N CARBON DIOXIDE (test code = CO2) 32 mEq/L 21-33 ANION GAP (test code = GAP) 7 0-20 N GLUCOSE (test code = GLU) 92 mg/dL 70-110 N BLOOD UREA NITROGEN (test code = BUN) 9 mg/dL 7-18 N GLOMERULAR FILTRATION RATE (test code = GFR) 85.3 110-120 L Units of measure = ml/min/1.73 m2 CREATININE (test code = CREAT) 1.1 mg/dL 0.6-1.3 CALCIUM (test code = CA) 9.4 mg/dL 8.0-10.5 N CBC W/AUTO [id number] 08:56:00* Test Item Value Reference Range Interpretation Comments WHITE BLOOD CELL (test code = WBC) 11.69 x10 3/uL 4.5-11.0 H RED BLOOD CELL (test code = RBC) 5.56 x10 6/uL 4.00-5.60 N HEMOGLOBIN (test code = HGB) 17.4 g/dL 12.5-16.9 H HEMATOCRIT (test code = HCT) 51.3 % 37.5-50.7 H MEAN CELL VOLUME (test code = MCV) 92.3 fL 81.0-99.0 N MEAN CELL HGB (test code = MCH) 31.3 pg 27.0-33.0 N MEAN CELL HGB CONCETRATION (test code = MCHC) 33.9 g/dL 33.0-37. 0 N RED CELL DISTRIBUTION WIDTH CV (test code = RDW) 13.1 % 11.5- 14.5 N RED CELL DISTRIBUTION WIDTH SD (test code = RDW-SD) 44.6 fL 37 .0-54.0 N PLATELET COUNT (test code = PLT) 255 x10 3/uL 150-400 N MEAN PLATELET VOLUME (test code = MPV) 9.5 fL 7.0-9.0 H NEUTROPHIL % (test code = NT%) 61.8 % 56.0-77.0 N IMMATURE GRANULOCYTE % (test code = IG%) 0.3 % 0.0-2.0 N LYMPHOCYTE % (test code = LY%) 25.6 % 14.0-32.0 N MONOCYTE % (test code = MO%) 9.2 % 4.8-9.0 H EOSINOPHIL % (test code = EO%) 2.7 % 0.3-3.7 N BASOPHIL % (test code = BA%) 0.4 % 0.0-2.0 N NUCLEATED RBC % (test code = NRBC%) 0.0 % 0-0 N NEUTROPHIL # (test code = NT#) 7.22 x10 3/uL 2.0-7.6 N IMMATURE GRANULOCYTE # (test code = IG#) 0.04 x10 3/uL 0.00-0.03 H LYMPHOCYTE # (test code = LY#) 2.99 x10 3/uL 1.0-3.8 N MONOCYTE # (test code = MO#) 1.07 x10 3/uL 0.1-0.8 H EOSINOPHIL # (test code = EO#) 0.32 x10 3/uL 0.0-0.2 H BASOPHIL # (test code = BA#) 0.05 x10 3/uL 0.0-0.2 N NUCLEATED RBC # (test code = NRBC#) 0.00 x10 3/uL 0.0-0.1 N MANUAL DIFF REQUIRED (test code = MDIFF) NO COMMENTS: CBC with PlateletsBASIC METABOLIC [id number] 08:55:00* Test Item Value Reference Range Interpretation Comments SODIUM (test code = NA) 136 mEq/L 134-147 N POTASSIUM (test code = K) 3.4 mEq/L 3.4-5.0 N CHLORIDE (test code = CL) 101 mEq/L 100-108 N CARBON DIOXIDE (test code = CO2) 25 mEq/L 21-33 N ANION GAP (test code = GAP) 13 0-20 N GLUCOSE (test code = GLU) 86 mg/dL 70-110 N BLOOD UREA NITROGEN (test code = BUN) 8 mg/dL 7-18 N GLOMERULAR FILTRATION RATE (test code = GFR) 123.2 110-120 H Units of measure = ml/min/1.73 m2 CREATININE (test code = CREAT) 0.8 mg/dL 0.6-1.3 N CALCIUM (test code = CA) 9.0 mg/dL 8.0-10.5 N CBC W/AUTO [id number] 08:16:00* Test Item Value Reference Range Interpretation Comments WHITE BLOOD CELL (test code = WBC) 11.18 x10 3/uL 4.5-11.0 H RED BLOOD CELL (test code = RBC) 5.35 x10 6/uL 4.00-5.60 N HEMOGLOBIN (test code = HGB) 16.5 g/dL 12.5-16.9 N HEMATOCRIT (test code = HCT) 49.2 % 37.5-50.7 N MEAN CELL VOLUME (test code = MCV) 92.0 fL 81.0-99.0 N MEAN CELL HGB (test code = MCH) 30.8 pg 27.0-33.0 N MEAN CELL HGB CONCETRATION (test code = MCHC) 33.5 g/dL 33.0-37. 0 N RED CELL DISTRIBUTION WIDTH CV (test code = RDW) 13.1 % 11.5- 14.5 N RED CELL DISTRIBUTION WIDTH SD (test code = RDW-SD) 44.3 fL 37 .0-54.0 N PLATELET COUNT (test code = PLT) 238 x10 3/uL 150-400 N MEAN PLATELET VOLUME (test code = MPV) 9.9 fL 7.0-9.0 H NEUTROPHIL % (test code = NT%) 69.2 % 56.0-77.0 N IMMATURE GRANULOCYTE % (test code = IG%) 0.4 % 0.0-2.0 N LYMPHOCYTE % (test code = LY%) 18.1 % 14.0-32.0 N MONOCYTE % (test code = MO%) 9.9 % 4.8-9.0 H EOSINOPHIL % (test code = EO%) 2.0 % 0.3-3.7 N BASOPHIL % (test code = BA%) 0.4 % 0.0-2.0 N NUCLEATED RBC % (test code = NRBC%) 0.0 % 0-0 N NEUTROPHIL # (test code = NT#) 7.73 x10 3/uL 2.0-7.6 H IMMATURE GRANULOCYTE # (test code = IG#) 0.05 x10 3/uL 0.00-0.03 H LYMPHOCYTE # (test code = LY#) 2.02 x10 3/uL 1.0-3.8 N MONOCYTE # (test code = MO#) 1.11 x10 3/uL 0.1-0.8 H EOSINOPHIL # (test code = EO#) 0.22 x10 3/uL 0.0-0.2 H BASOPHIL # (test code = BA#) 0.05 x10 3/uL 0.0-0.2 N NUCLEATED RBC # (test code = NRBC#) 0.00 x10 3/uL 0.0-0.1 N MANUAL DIFF REQUIRED (test code = MDIFF) NO - XR CHEST 1 [id number] 16:27:00 FAX: Jsoe Peña MD [phone] [place]: St: [facility] FAX: Cole Al MD [phone] Name: PEARL FERRARA [facility] Amanda Cotto : 1995 Age/S: 22/M [address] [place] [address] Blvd Unit #: [id number] Loc: [place] [address] Phys: Jose Grossman MD Acct: [id number] Dis Date: Status: ADM IN PHONE #: [phone] Exam Date: 07/18/2018 1449 FAX #: [phone] Reason: F/U PNEUMOTHORAX. EXAMS: CPT CODE: [id number] XR CHEST 1 V 84847 Portable chest performed July 18, 2018 1451 hours. COMPARISON: July 18, 2018 0844 hours. CLINICAL HISTORY: Follow-up pneumothorax. DISCUSSION: Single portable chest is submitted. Small bore pigtail right pleural chest tube is seen with the tip over the upper medial lung. Stable pleural chest tube is seen over the right lower lung. Persistent moderate sized right pneumothorax which is decreased in size compared to previous exam.. The left lung is clear. Heart size and osseous structures are within normal limits. IMPRESSION: 1. Interval decrease in the size of the right pneumothorax. 2. 2 right pleural chest tubes are in place. at 0784 Reported and signed by: Tonya Ramirez M.D. CC: Jose Grossman MD; Cole Cordoba MD Technologist: RT Ailyn(R) Trnscrd Date/Time/By: 07/18/2018 (6493) : By: PrakashG Orig Print D/T: S: 07/18/2018 (5438) PAGE 1 Signed Report - SP FLUOROSCOPY 0-60 [id number] 14:41:00 FAX: Dale Heredia NP [phone] [place]: St: ADM FAX: Cole Al MD [phone] Name: PEARL FERRARA [facility] [place] : 1995 Age/S: 22/M [address] [place] [address] Unit #: [id number] Loc: [place] [address] Phys: Juan Antonio Herediait MAINTENANCE WORKER Acct: [id number] Dis Date: Status: ADM IN PHONE #: [phone] Exam Date: 07/18/2018 1425 FAX #: [phone] Reason: chesty tube placement EXAMS: CPT CODE: [id number] SP FLUOROSCOPY 0-60 MIN 02065 PROCEDURE: Placement of percutaneous right chest tube under fluoroscopy guidance. INDICATION: Right pneumothorax. COMPARISON: None. TECHNICAL: Fluoroscopic time was 2.1 minutes. Reference Air Kerma Dose 19 mGy. Medications: 4 mg morphine IV PROCEDURE: The procedure, risks, benefits and alternatives were discussed. Informed consent was obtained. Timeout was p erformed prior to the procedure. The patient was placed in t he supine position. Initial fluoroscopy imaging was performed to localize the right pneumothorax. The overlying skin was prepped and draped in the u sual sterile fashion. 1% lidocaine was used for local anesthesia. Using im aging guidance, a one-step needle catheter was advanced into the right ple ural space. Guidewire was advanced through the needle catheter into the ri ght pneumothorax. Dilatation of the tract was performed with Seldinger technique. A 12 Mohawk pigtail cath was advanced over guidewire into the right pneumothorax. Final imaging was performed. The catheter was secured to the skin. Sterile dressing was applied. The pigtail catheter was conn ected to pneumo-vac. There were no evident complications and the patient had no complaints. FINDINGS: Initial imaging: Large right p neumothorax was seen. Final imaging: Final images demonstrate percutaneou s chest tube well positioned and mild decrease in size of prior noted pneu mothorax. IMPRESSION: 1. Technically successful placemen t of percutaneous right chest tube using fluoroscopy guidance. PAGE 1 Signed Report (CONTINUED) FAX: Dale Heredia CAMERON [phone] [place]: St: ADM FAX: Cole Young MD [phone] Name: ALEM,FRANK [facility] : 1995 Age/S: 22/M [address] [place] [address] Blvd Unit #: [id number] Loc: [address] [place], [place] [address] Phys: Dale Heredia NP Acct: [id number] Dis Date: Status: ADM IN PHONE #: [phone] Exam Date: 07/18/2018 1 425 FAX #: [phone] Reason: chesty tube placement EXAMS: CPT CODE: [id number] SP FLUOROSCOPY 0-60 MIN 30428 <Continued> at 1441 Reported and signed by: Peter Duque D.O. CC: Dale Heredia NP; Cole Cordoba MD Technologist: Bushra Novak RT(R); Fariha Lo RT(R)(CT) Trnazrd Date/Time/By: 07/18/2018 (1446) : By: [email or web address] Orig Print D/T: S: 07/18/2018 (7371) PAGE 2 Signed Report - XR CHEST 2 [id number] 10:44:00 FAX: Cole Al MD [phone] [place]: St: ADM Name: Tatiana PEARL MILLER [facility] : [birth year] Age/S: 22/M [address] [place] [address] Blvd Unit #: [id number] Loc: [address] [place] [address] Phys: Cole Cordoba MD Acct: [id number] Dis Date: Status: ADM IN PHONE #: [phone] Exam Date: 07/18/2018 0845 FAX #: [phone] Reason: F/U ON RIGHT PTX WITH CHEST TUBE EXAMS: CPT CODE: [id number] XR CHEST 2 V 00365 Chest 2 views 07/18/2018 HISTORY: Pneumothorax Comparison is made to 07/17/2018 FINDINGS: New large right pneumothorax is noted with slight leftward mediastinal shift. Right lower lobe is collapsed. The side-port of the right chest tube is external to the chest wall. Left lung is clear. Hear t size is normal. No vascular congestion or interstitial edema is n oted. IMPRESSION: Large right pneumothorax with slight l eftward mediastinal shift. Findings were discussed with the kori mcduffie's nurse on 5S ([facility] [place] [facility] [place] by Dr. Malik at 10:38 AM on 07/18/2018. SL: [id number] at 1044 Reported and signed by: Buck Malik M.D. CC: Cole Cordoba MD Techno logist: RT Hector(R) Trnscrd Date/Time /By: 07/18/2018 (8262) : By: [email or web address] Orig Print D/T: S: 07/18/2018 ( 4291) PAGE 1 Signed Report - CT CHEST W/O [id number] 10:42:00 Name: PEARL FERRARA [facility] : 1995 Age/S: 22 / M [address] [place] [address] Unit #: [id number] Loc: [place] [address] Phys: Marcus Benavidez MD Acct: [id number] Di s Date: Status: ADM IN PHONE #: [phone] Exam Date: 07/18/2018 08 FAX #: Reason: PTX EXAMS: CPT CODE: [id number] CT CHEST W/O CONTRAST 33533 PROCEDURE: CT CHEST WITHO UT CONTRAST INDICATION: Right pneumothorax COMPARISO N: X-ray 08/16/2018 TECHNIQUE: Noncontrasted helical imaging perfor med apices through the lung bases with multiplanar reconstructions. DLP: 177.9 mGy FINDINGS: LUNGS AND PLEURA: There is a large ri ght pneumothorax which is increased from prior study. Postoperative malcolm es the right lung apex are noted. There are areas of consolidation throug hout the right upper lobe. The right lower lobe shows complete consolidat ion. No significant pleural fluid is noted. Left lung is clear. No defi nite right pulmonary bleb is identified, though this is limited due to the compression of the right lung from the large right pneumothorax. I nferior right chest tube is noted. MEDIASTINUM: The mediastinal co ntents are unremarkable. No adenopathy. HEART: The cardiac chambers are unremarkable. No pericardial effusion. UPPER A BDOMEN: Limited noncontrast survey of upper abdominal viscera is negative. MUSCULOSKELETAL: The skeleton is intact. IMPRESSI ON: 1. New large right pneumothorax despite right inferior chest tube. 2. Compression of right lower lobe with airspace opacities in right upper lobe and postoperative changes in right lung apex. Findings were discussed with the patient's nurse on 5S ([place]) by Dr. Malik at 10:38 AM on 07/18/2018. SL: [id number] at 1042 Reported and signed by: Buck Malik M.D. PAGE 1 Signed Report (CONTINUED) Name: PEARL FERRARA [facility] : 1995 Age/S: 22 / M [address] [place], [place] [address]vd Unit #: [id number] Loc: [place] [address] Phys: Marcus Benavidez MD Acct: [id number] Dis Date: Status: ADM IN PHONE #: [phone] Exam Date: 07/18/2018828 FAX #: [phone] Reason: PTX EXAMS: CPT CODE: [id number] CT CHEST W/O CONTRAST 99821 < Continued> CC: Cole Cordoba MD Technologist:RT Parul(R) CTDI: DLP: Trnscb Date/Time: 07/18/2018 (1782) [email or web address] Orig Print D/T: S: 07/18/2018 (2531) PAGE 2 Signed Report BASIC METABOLIC [id number] 05:04:00* Test Item Value Reference Range Interpretation Comments SODIUM (test code = NA) 137 mEq/L 134-147 N POTASSIUM (test code = K) 3.8 mEq/L 3.4-5.0 N CHLORIDE (test code = CL) 104 mEq/L 100-108 N CARBON DIOXIDE (test code = CO2) 28 mEq/L 21-33 N ANION GAP (test code = GAP) 9 0-20 N GLUCOSE (test code = GLU) 106 mg/dL 70-110 N BLOOD UREA NITROGEN (test code = BUN) 7 mg/dL 7-18 GLOMERULAR FILTRATION RATE (test code = GFR) 123.2 110-120 H Units of measure = ml/min/1.73 m2 CREATININE (test code = CREAT) 0.8 mg/dL 0.6-1.3 N CALCIUM (test code = CA) 8.6 mg/dL 8.0-10.5 N LIPID PROFILE (CORONARY RISK)2018-07-18 05:04:00* Test Item Value Reference Range Interpretation Comments TRIGLYCERIDES (test code = TRIG) 69 mg/dL 40-150 N CHOLESTEROL (test code = CHOL) 126 mg/dL <200 CHOLESTEROL/HDL RATIO (test code = CHOLHDL) 2.03 RATIO 3.43-4.97 L RISK ASSOCIATED WITH CHOL/HDL RATIOS: RISK MALE FEMALE1/2 AVERAGE 3.43 3.27AVERAGE 4.97 4.442X AVERAGE 9.55 7.053X AVERAGE 23.39 11.04 NOTE THAT THE REFERENCE VALUE IS RELATEDTO RISK LEVELS RECOMMENDED BY THE NATL.HEART, LUNG, AND BLOOD INST. HDL CHOLESTEROL (test code = HDL) 62.0 mg/dL 32-72 N LIPOPROTEIN LDL (test code = LDL) 60 mg/dL 0-100 N <100 [id number] NEAR OPTIMAL/ABOVE [id number] HIGH>RO=897 VERY HIGH*Guidelines provided by the National Cholesterol EducationProgram Adult Treatment Panel III CBC W/AUTO [id number] 04:39:00* Test Item Value Reference Range Interpretation Comments WHITE BLOOD CELL (test code = WBC) 11.54 x10 3/uL 4.5-11.0 H RED BLOOD CELL (test code = RBC) 5.26 x10 6/uL 4.00-5.60 N HEMOGLOBIN (test code = HGB) 16.6 g/dL 12.5-16.9 N HEMATOCRIT (test code = HCT) 48.6 % 37.5-50.7 N MEAN CELL VOLUME (test code = MCV) 92.4 fL 81.0-99.0 N MEAN CELL HGB (test code = MCH) 31.6 pg 27.0-33.0 N MEAN CELL HGB CONCETRATION (test code = MCHC) 34.2 g/dL 33.0-37. 0 N RED CELL DISTRIBUTION WIDTH CV (test code = RDW) 13.2 % 11.5- 14.5 N RED CELL DISTRIBUTION WIDTH SD (test code = RDW-SD) 44.8 fL 37 .0-54.0 N PLATELET COUNT (test code = PLT) 233 x10 3/uL 150-400 N MEAN PLATELET VOLUME (test code = MPV) 9.5 fL 7.0-9.0 H NEUTROPHIL % (test code = NT%) 71.6 % 56.0-77.0 N IMMATURE GRANULOCYTE % (test code = IG%) 0.3 % 0.0-2.0 N LYMPHOCYTE % (test code = LY%) 19.0 % 14.0-32.0 N MONOCYTE % (test code = MO%) 7.8 % 4.8-9.0 N EOSINOPHIL % (test code = EO%) 1.0 % 0.3-3.7 N BASOPHIL % (test code = BA%) 0.3 % 0.0-2.0 N NUCLEATED RBC % (test code = NRBC%) 0.0 % 0-0 N NEUTROPHIL # (test code = NT#) 8.28 x10 3/uL 2.0-7.6 H IMMATURE GRANULOCYTE # (test code = IG#) 0.03 x10 3/uL 0.00-0.03 N LYMPHOCYTE # (test code = LY#) 2.19 x10 3/uL 1.0-3.8 N MONOCYTE # (test code = MO#) 0.90 x10 3/uL 0.1-0.8 H EOSINOPHIL # (test code = EO#) 0.11 x10 3/uL 0.0-0.2 N BASOPHIL # (test code = BA#) 0.03 x10 3/uL 0.0-0.2 N NUCLEATED RBC # (test code = NRBC#) 0.00 x10 3/uL 0.0-0.1 N MANUAL DIFF REQUIRED (test code = MDIFF) NO - XR CHEST 1 [id number] 06:59:00 FAX: Cole Al MD [phone] [place]: St: ADM Name: PEARL HOPPER [facility] : [birth year] Age/S: 22/M [address] [place] [address] Unit #: [id number] Loc: [place] [address] Phys: Cole Cordoba MD Acct: [id number] Dis Date: Status: ADM IN PHONE #: [phone] Exam Date: 07/17/2018 06 FAX #: [phone] Reason: F/U ON RIGHT PTX WITH CHEST TUBE EXAMS: CPT CODE: [id number] XR CHEST 1 V 82203 Chest, single view dated 07/17/2018 at 5:52 AM. HISTORY: Follow-up right pneumothorax. Comparison is made to a prior study dated 07/17/2018 at 12:52 AM. T he positioning of the right-sided chest tube has not significantly changed in the interim. A pneumothorax persists in the right base with associated right basilar volume loss. The cardiomediastinal shadow is stable. The left lung appears clear. Postoperative changes are identified in both fang ng apices. The pulmonary vasculature is normal in caliber. No acute pleu ral space abnormalities are detected. IMPRESSION: 1. St able right pneumothorax with right basilar volume loss. SL: 13 1 at 0647 Reported and signed by: Sukhjinder Whiting M.D. CC: Tash Cordoba MD Technologist: Lesia Ramos en, RT(R) Trnscrd Date/Time/By: 07/17/2018 (065 9) : By: Brittny Orig Print D/T: S: 07/17/2018 (8278) PAGE 1 Signed Report T4 [id number] 06:30:00* Test Item Value Reference Range Interpretation Comments T4 FREE (test code = T4F) 1.3 ng/dL 0.77-1.61 N THYROID STIMULATING [id number] 06:30:00* Test Item Value Reference Range Interpretation Comments THYROID STIMULATING HORMONE (test code = TSH) 1.14 0.42-5.4 7 N Results in abi- International Units/mL - XR CHEST 1 [id number] 01:13:00 FAX: Mario Newman MD [phone] [place]: St: REG Name: PEARL HOPPER [facility] : [birth year] Age/S: 22/M [address] [place] [address] Unit #: [id number] Loc: [place] [address] Phys: Mario Flores MD Acct: [id number] Dis Date: Status: REG ER PHONE #: [phone] Exam Date: 07/17/2018 0106 FAX #: [phone] Reason: chest tube placement EXAMS: CPT CODE: [id number] XR CHEST 1 V 29102 Chest x-ray 1 view History: Chest tube placement Comparison: Plain film from 9. Findings: Lines and tubes: Interval placement of a right-sided chest tube terminating over the right lower lung zone. Mediastinum: The cardiomediastinal contours are unremarkable. Lungs and pleural spaces: Interval improvement of the right-sided pn eumothorax now with small right basilar pneumothorax component remaining. Partial atelectasis of the right lower lobe is present. No pleural effus ion given collimation of the left costophrenic angle. Linear densi ty along the right medial apical region may represent atelectasis, scarrin g or surgical suture. The visualized left lung is clear. Tr anali amount of right axilla subcutaneous gas is noted along the soft tissue s adjacent to the chest tube. Impression: Inte rval right chest tube placement with improved right pneumothorax, now wi th small basal component remaining. Partial right lower lobe a telectasis. Linear density along the right medial apical regio n may represent atelectasis, scarring or surgical suture. E lectronically Signed by Jesus Chin on 07/17/2018 at 0113 Reported and signed by: Rosanne Chin M.D. CC: Mario Flores MD Technologist: Veronika Bass, RT(R); Ronny Caraballo RT(R) Trnscrd Date/Time/By: 07/17/2018 (0113) : By: [email or web address] Orig Print D/T: S: 07/17/2018 (0116) PAGE 1 Signed Report BASIC METABOLIC [id number] 00:27:00* Test Item Value Reference Range Interpretation Comments SODIUM (test code = NA) 140 mEq/L 134-147 N POTASSIUM (test code = K) 3.6 mEq/L 3.4-5.0 N CHLORIDE (test code = CL) 106 mEq/L 100-108 N CARBON DIOXIDE (test code = CO2) 30 mEq/L 21-33 N ANION GAP (test code = GAP) 8 0-20 N GLUCOSE (test code = GLU) 94 mg/dL 70-110 N BLOOD UREA NITROGEN (test code = BUN) 13 mg/dL 7-18 N GLOMERULAR FILTRATION RATE (test code = GFR) 95.3 110-120 L Units of measure = ml/min/1.73 m2 CREATININE (test code = CREAT) 1.0 mg/dL 0.6-1.3 N CALCIUM (test code = CA) 8.6 mg/dL 8.0-10.5 N PROTHROMBIN [id number] 00:14:00* Test Item Value Reference Range Interpretation Comments PROTHROMBIN TIME PATIENT (test code = PTP) 12.5 SECONDS 9.3-12.9 N INTERNATIONAL NORMAL RATIO (test code = INR) 1.1 0.8-1.2 N TARGET INR BY INDICATION Indication INR1. Prophylaxis of venous thrombosis 2.0 - 3.0 (orthopedic surgery), Prophylaxis of venous thrombosis (other than high-risk surgery), Treatment of Deep Vein Thrombosis/Pulmonary Embolism, Prevention of systemic embolism - Tissue heart valves, Acute Myocardial Infarction (to prevent systemic embolism), Valvular heart disease, Atrial Fibrillation, Bileaflet mechanical valve in aortic position.2. Mechanical prosthetic valves (high risk), 2.5 - 3.5 Presence of Lupus Anticoagulant or Antiphospholipid Antibodies, Prevention of systemic embolism - Acute Myocardial Infarction (to prevent recurrent infarct). THROMBOPLASTIN TIME [id number] 00:14:00* Test Item Value Reference Range Interpretation Comments THROMBOPLASTIN TIME PARTIAL (test code = PTT) 31.4 Seconds 25.0-39. 5 N Therapeutic Range: 50.4 - 88.3 Seconds Effective 05/21/2018 CBC W/AUTO [id number] 00:11:00* Test Item Value Reference Range Interpretation Comments WHITE BLOOD CELL (test code = WBC) 12.36 x10 3/uL 4.5-11.0 H RED BLOOD CELL (test code = RBC) 5.47 x10 6/uL 4.00-5.60 N HEMOGLOBIN (test code = HGB) 17.1 g/dL 12.5-16.9 H HEMATOCRIT (test code = HCT) 50.4 % 37.5-50.7 N MEAN CELL VOLUME (test code = MCV) 92.1 fL 81.0-99.0 N MEAN CELL HGB (test code = MCH) 31.3 pg 27.0-33.0 N MEAN CELL HGB CONCETRATION (test code = MCHC) 33.9 g/dL 33.0-37. 0 N RED CELL DISTRIBUTION WIDTH CV (test code = RDW) 13.1 % 11.5- 14.5 N RED CELL DISTRIBUTION WIDTH SD (test code = RDW-SD) 44.6 fL 37 .0-54.0 N PLATELET COUNT (test code = PLT) 254 x10 3/uL 150-400 N MEAN PLATELET VOLUME (test code = MPV) 9.5 fL 7.0-9.0 H NEUTROPHIL % (test code = NT%) 59.9 % 56.0-77.0 N IMMATURE GRANULOCYTE % (test code = IG%) 0.3 % 0.0-2.0 N LYMPHOCYTE % (test code = LY%) 28.6 % 14.0-32.0 N MONOCYTE % (test code = MO%) 8.2 % 4.8-9.0 N EOSINOPHIL % (test code = EO%) 2.7 % 0.3-3.7 N BASOPHIL % (test code = BA%) 0.3 % 0.0-2.0 N NUCLEATED RBC % (test code = NRBC%) 0.0 % 0-0 N NEUTROPHIL # (test code = NT#) 7.40 x10 3/uL 2.0-7.6 N IMMATURE GRANULOCYTE # (test code = IG#) 0.04 x10 3/uL 0.00-0.03 H LYMPHOCYTE # (test code = LY#) 3.54 x10 3/uL 1.0-3.8 N MONOCYTE # (test code = MO#) 1.01 x10 3/uL 0.1-0.8 H EOSINOPHIL # (test code = EO#) 0.33 x10 3/uL 0.0-0.2 H BASOPHIL # (test code = BA#) 0.04 x10 3/uL 0.0-0.2 N NUCLEATED RBC # (test code = NRBC#) 0.00 x10 3/uL 0.0-0.1 N MANUAL DIFF REQUIRED (test code = MDIFF) NO - XR CHEST 2 [id number] 23:18:00 FAX: Mario Newman MD [phone] [place]: St: PRE Name: PEARL HOPPER [facility] : [birth year] Age/S: 22/M [address] [place] [address] Unit #: [id number] Loc: [address] [address] Phys: Mario Flores MD Acct: [id number] Dis Date: Status: PRE ER PHONE #: [phone] Exam Date: 07/16/20182313 FAX #: [phone] Reason: sob EXAMS: CPT CODE: [id number] XR CHEST 2 V 85523 Chest, 2 view dated 07/16/2018. HISTORY: Shortness of breath. No prior studies are avai lable for comparison. The heart is normal in size. The cardiomedi astinal shadow appears within normal limits. A large right pneumothorax i s identified with partial collapse of the right lung. Postoperative malcolm es are noted in the right lung apex. The left lung appears clear. No acu te left pleural space abnormalities are identified. IMPRES CATIA: 1. Large right pneumothorax with partial collapse of the right fang ng. Report called to Dr. Flores on 07/16/2018 at 11:15 PM. SL: 131 at 7725 Reported and signed by: Sukhjinder Whiting M.D. CC: Mario Flores MD Technologist: Ronny Caraballo, RT(R) Trnscrd Da te/Time/By: 07/16/2018 (0565) : By: Brittny James Print D/T: S: 07/16 (0450) PAGE 1 Signed Report
[2019-09-28] MEDS ORDERED: CEFAZOLIN SOD 1 GM VIAL ONE (23:58)
[2019-09-29] MEDS ORDERED: CEFAZOLIN SOD 1 GM VIAL IM SCH
[2019-09-29] MEDS ORDERED: TYLENOL WITH C1 EACH PO (00:01)
[2019-09-29] MEDS ORDERED: CEPHALEXIN500 MG PO (00:06)
== END 2019-09-29 00:15 | disposition home or self-care (01) ==
LOC: FSED 23:20
DX: S62.324A Displaced fracture of shaft of fourth metacarpal bone, right hand, initial encounter for closed fracture (principal); S62.326A Displaced fracture of shaft of fifth metacarpal bone, right hand, initial encounter for closed fracture; W22.09XA Striking against other stationary object, initial encounter; Y92.89 Other specified places as the place of occurrence of the external cause
CPT/HCPCS: 99284; J0690

== ENCOUNTER 2019-11-18 10:04 | Emergency (ER) | payer OTHER ==
[~2019-11-18] VITALS: Ht 188 cm; Wt 65.8 kg
[~2019-11-18 10:04] MED LIST: CEPHALEXIN500 MG PO; TYLENOL WITH C1 EACH PO
--- NOTE | 2019-11-18 11:05 | Emergency Department Note ---
History of Present Illnes History of Present Illness Chief Complaint: Eye, Ear, Nose, Throat, Dental History of Present Illness This is a 23 year old male, with history of spontaneous pneumothorax 3 last year, who presents with a one-day history of yellow, postnasal drainage and yellow drainage from the nose. Patient denies any cough, fever, sneezing, chest pain, or shortness of breath. Patient has not taken any medications over-the- counter for the symptoms. He denies any known sick contacts or exposure to Covid 19. He is "concerned that the infection might make it into his chest, and result in another spontaneous pneumothorax." He denies any history of seasonal allergies. 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 Required: No Onset (how long ago): day(s) (1) Location: nose Quality: post-nasal drainage; Radiation: Denies non-radiation Severity: mild Onset quality: sudden Duration (how long): day(s) (1) Timing of current episode: constant Progression: worsening Chronicity: new Context: Reports recent surgery (right hand surgery this past month;); Denies recent illness Relieving factors: none Exacerbating factors: none Associated symptoms: Reports denies other symptoms; Denies chest pain, Denies cough, Denies fever/chills, Denies headaches, Denies loss of appetite Treatments prior to arrival: none Past Medical/Family History Physician Review I have reviewed the patient's past medical and family history. Any updates have been documented here. Past Medical History Recent Fever: No Clinical Suspicion of Infectio: No New/Unexplained Change in Ment: No Other Medical History: - Spontaneous Pneumothorax x 3, in 2019 Past Surgical History: None Other Surgery: ? Surgery on lungs, due to PTX Social History Smoking Cessation: Never Smoker Alcohol Use: Occasional Any Illegal Drug Use: No Other Last Tetanus: 8 years ago Any Pre-Existing Lines (PICC,: No Review of Systems Review of Systems Constitutional: Denies chills, Denies fever EENTM: Reports no symptoms Cardiovascular: Denies chest pain, Denies palpitations Respiratory: Denies chest congestion, Denies cough, Denies dyspnea, Denies dyspnea on exertion Gastrointestinal: Denies abdominal pain, Denies nausea, Denies vomiting Genitourinary: Reports no symptoms Integumentary: Reports no symptoms Hematological/Lymphatic: Reports no symptoms Review of other systems: All other systems negative Physical Exam Related Data Allergies: Coded Allergies: No Known Allergies (Unverified , 09/29/19) Triage Vital Signs Vital Signs Date Time Temp Pulse Resp B/P (MAP) Pulse Ox O2 Delivery O2 Flow Rate FiO2 11/18/19 10:42 98.1 83 16 141/88 98 Room Air Vital signs reviewed: Yes Physical Exam CONSTITUTIONAL Constitutional: Present well-developed, Present well-nourished; Absent distressed, Absent ill appearing HENT HENT: Present normocephalic, Present atraumatic, Present oropharynx clear/moist, Present oropharynx normal, Present nasal discharge (clear); Absent nose normal (erythematous and edematous inferior nasal turbinates;) HENT L/R: Present left ext ear normal, Present right ext ear normal EYES Eyes: Reports PERRL, Reports conjunctivae normal NECK Neck: Present ROM normal, Present supple; Absent cervical adenopathy PULMONARY Pulmonary: Present effort normal, Present breath sounds normal CARDIOVASCULAR Cardiovascular: Present regular rhythm, Present heart sounds normal, Present capillary refill normal, Present normal rate; Absent murmur GASTROINTESTINAL GENITOURINARY SKIN Skin: Present warm, Present dry MUSCULOSKELETAL NEUROLOGICAL Neurological: Present alert, Present oriented x 3, Present no gross motor or sensory deficits PSYCHOLOGICAL Assessment & Plan Medical Decision Making MDM - Recommend the following, to take for current symptoms: - Zyrtec/Cetirizine 10 mg - 1 tab daily x 7-10 days, to help with nasal drainage. - Nasacort Nasal [place] - 2 sprays each nostril once daily, to help with nasal drainage . - IF your symptoms worsen: develop fever, productive cough, body aches, then you should be re-evaluated. - Follow-up with your PCP, if symptoms worsen. Assessment & Plan Final Impression: (1) Upper respiratory infection (2) Seasonal allergies Depart Disposition: HOME, SELF-CARE Last Vital Signs Date Time Temp Pulse Resp B/P (MAP) Pulse Ox O2 Delivery O2 Flow Rate FiO2 11/18/19 10:42 98.1 83 16 141/88 98 Room Air Home Meds Active Scripts Azithromycin (ZITHROMAX) 250 Mg Tablet, 2 TAB PO as directed, #6 TAB 0 Refills 2 tabs po today, then 1 po daily x 4 days. Complete 5 day course, for infection. Prov:SHERIDAN JOLLEY MD 11/18/19 Cephalexin (CEPHALEXIN) 500 Mg Capsule, 500 MG PO TID for infection for 10 Days, #30 CAP 0 Refills Prov:SHERIDAN JOLLEY MD 09/29/19 Acetaminophen With Codeine (TYLENOL WITH CODEINE #3 TABLET) 1 Each Tablet, 1-2 TAB PO Q6H PRN for pain, #20 TAB 0 Refills DO NOT take and drive or operate machinery. Prov:SHERIDAN JOLLEY MD 09/29/19 SHERIDAN JOLLEY MD Nov 18, 2019 11:04
[2019-11-18] MEDS ORDERED: ZITHROMAX250 MG PO (11:16)
--- OUTSIDE RECORDS SUMMARY | 2019-11-18 11:33 | XMS REPORT | Continuity of Care Document ---
Author Author [employer] PEARL Whitlock MA Organization [facility] Address Unknown Phone Unavailable Care Team Providers Care Transformer Inspector Name Role Phone [employer] Unavailable Un available Problems Problem Status Onset Date Classification Date Reported Comments Source Pneumohemothorax Active 12/24/2012 [facility] Medications Medication Details Route Status Patient Instructions Ordering Provider Order Date Source No Reported Medications (Acti ve) Active [facility] Allergies, Adverse Reactions, Alerts Substance Category Reaction Severity Reaction type Status Date Reported Comments Source No Known Drug Allergies drug a llergy drug aller gy Active [facility] Immunizations No Data Provided for This [...] ADM Date DC Date Status Source AUDIT [id number] 12/24/2012 12/24/2012 [facility] Procedures No Data Provided for This Section Assessment and Plan No Data Provided for This Section Plan of Care No Data Provided for This Section Social History Social History Date Source Never A Smoker (Active) 12/24/2012 [facility] Family History No Data Provided for This Section Advance Directives Order Name Results Value Date Source Advance Directives Advance Dir ectives No Advance Directives available. 12/24/2012 [facility] Functional Status No Data Provided for This Section
--- OUTSIDE RECORDS SUMMARY | 2019-11-18 11:33 | XMS REPORT | Continuity of Care Document ---
Author Author [facility] t Organization [facility] Address [address] [place] [address] Phone Unavailable Care Team Providers Care Air Twist Operator Name Role Phone NO, PCP PCP Unavailable DR JOSE MANN Unavailable DUCHAMP, Tatiana SWARTZ Attphys Unavailable DR JOSE MANN Unavailable Payers Payer Name Policy Type Policy Number Effective Date Expiration Date Ariel [facility] [id number] 2019 00:00: 00 [facility] Problems Condition Name Condition Details Condition Category Status Onset Date Resolution Date Last Treatment Date Treating Clinician Comments Source Fracture of shaft of fourth metacarpal bone of right hand Pr oblem Active [facility] Closed fracture of shaft of fourth metacarpal bone Problem Active [facility] Pain of right hand Problem Active [facility] Laceration of right hand Problem Active [facility] Pneumohemothorax Pneu mohemothorax Active 12/24/2012 [facility] Problem Active 2012-12-24 07:55:08 M ryan Boo Allergies, Adverse Reactions, Alerts Allergy Name Allergy Type Status Severity Reaction(s) Onset Date Inacti ve Date Treating Clinician Comments Source BLOOD DA Active U 2018-07-22 00:00:00 [facility] No Known Allergies DA Active U 2018-07-22 00:00:00 [facility] NKDA DA Active U 2018-07-22 00:00:00 [facility] BLOOD. PT IS EVANGELICAL AND CAN'T GET TRANSFUSION DA A ctive U 2018-07-18 00:00:00 [facility] No Known Allergies DA Active U 2018-07-16 00:00:00 [facility] No Known Drug Allergies No Known Drug Allergies [facility] Social History Social Habit Start Date Stop Date Quantity Comments Source Social History 2012-12-24 07:55:08 2012-12-24 07:55:08 Joao Boo Sex Assigned At 1995 00:00:00 1995 00:00:00 Male [facility] Medications Ordered Medication Name Filled Medication Name Start Date Stop Da te Current Medication? Ordering Clinician Indication Dosage Frequency Signature (SIG) Comments Components Source Cephalexin Cephalexin 2019-09-29 00:06:00 Yes 500 Three Times A Day for Infection [facility] Acetaminophen With Codeine (Tylenol With Codeine #3 Ta blet) 1 Each TABLET Acetaminophen With Codeine (Tylenol With Codeine #3 Tablet) 1 Each TABLET 2019-09-29 00:01:00 Yes Every 6 Hours as n eeded for Pain [facility] No Reported Medications 2012-12-24 07:55:08 Yes (Active) Joao Boo Vital Signs Vital Name Observation Time Observation Value Comments Source Weight 2019-09-28 22:48:00 135 [lb_av] [facility] BMI (Body Mass Index) 2019-09-28 22:48:00 17.3 kg/m2 [facility] Procedures This patient has no known procedures. Plan of Care Planned Activity Planned Date Details Comments Source Instructions Splint/Cast Care [facility] Instructions Fractures - [facility] Encounters Start Date/Time End Date/Time Encounter Type Admission Type Attendi [facility] Care Department Encounter ID Source 2019-11-20 11:30:00 Inpatient [facility] [id number] [facility] 2019-09-30 08:16:00 2019-09-30 12:22:00 Outpatient [facility] [id number] [facility] 2019-09-28 23:20:00 2019-09-29 00:15:00 Departed Emergency Room [address] [facility] [place] [id number] [facility] 2019-02-10 22:27:00 2019-02-10 22:27:00 Emergency E [id number] 2012-12-24 01:55:08 2012-12-24 01:55:08 Outpatient [facility] [id number] Results Test Description Test Time Test Comments Results Result Comments Source HAND 3 VIEW RT - HOPD 2019-09-28 23:30:00 [facility] [address] [place] [address] Patient Name: PEARL RONQUILLO MR #: [id number] : 1995 Age/Sex: 23/M Req #: [id number] Adm Physician: Ordered by: SHERIDAN JOLLEY MD Report #: [id number] Location: [facility] Room/Bed: Procedure: [id number] HOPD/HAND 3 VIEW RT - HOPD Exam Date: 09/28/19 Exam Time: 2305 REPORT STATUS: Signed X-ray right hand 3 views HISTORY: Pain. COMPARISON: None available. FINDINGS: Bones: Mildly displaced fifth metacarpal shaft fracture and minimally displaced fourth metacarpal shaft fracture. Joints: The joint spaces are well- maintained. Soft tissues: Soft tissue swelling about the hand. IMPRESSION: Mildly displaced fifth metacarpal shaft fracture and minimally displaced fourth metacarpal shaft fracture. Signed by: Yosvany Elizalde DO on 09/28/2019 11:31 PM Dictated By: YOSVANY ELIZALDE DO 30 Transcribed By: ZI on 09/28/192330 COPY TO: SHERIDAN JOLLEY MD SURGICAL SPECIMENS 2018-07-24 10:43:00 RUN DATE: 07/24/18 [facility] *LIVE* PAGE 1 RUN TIME: 1043 Specimen Inquiry RUN USER: INTERFACE PATIENT: PEARL FERRARA LOC: G.CVN1 U #: [id number] AGE/SX: 22/M ROOM: [facility] RE07/17/18REG DR: Cole Cordoba MD : [birth year] BED: 1 DIS: 07/23/18 STATUS: DIS IN TLOC: SPEC #: [id number] RECD: 07/22/18 STATUS: [place] SNEED #: [id number] CAS: 07/22/[address] [facility] [address]: Cole Cordoba MD ENTERED: 07/24/18 SP TYPE: SURG SPEC OTHR DR: No Primary or Family Physician Self Referred Leonel Oro MD, Kevin MD Terminella, Luigi MDORDERED: GM LEVEL 4 CODES: [id number] - LUNG, NOS COPIES TO: No Primary or Family Physician Self Referred Leonel Oro MD [address] [facility] [place] [address] Nav Washburn MD [address] [id number] Marcus Benavidez MD [address] [address] Cole Cordoba MD [address] [place] [address] PROCEDURES: GM LEVEL 4 (Incomplete) TISSUES: 1. LUNG, NOS - Lung, right pleura, excision CONTINUED ON NEXT PAGE RUN DATE: 07/24/18 [facility] *LIVE* PAGE 2 RUN TIME: 1043 Specimen Inquiry RUN USER: INTERFACE SPEC #: [id number] PATIENT: PEARL FERRARA #[id number] (Continued) FINAL DIAGNOSIS Lung, right pleura, excision: [...] history of pneumothorax. POST-OP DIAGNOSIS None given PRE- OP DIAGNOSIS Spontaneous pneumothorax Signed SIGNATURE ON FILE MikerosendoCornell newberry DO 07/24/18 1043 END OF REPORT - XR CHEST 1 V 2018-07-23 05:38:00 FAX: Fang Alicia [phone] [place]: St: ADM FAX: Cole Al MD [phone] Name: PEARL FERRARA [facility] [place] : 1995 Age/S: 22/M [address] [place] [address] Unit #: [id number] Loc: G.[address] [place] [address] Phys: Yudith Alicia NP Acct: [id number] Dis Date: Status: ADM IN PHONE #: [phone] Exam Date: 07/23/2018519 FAX #: [phone] Reason: S/P Thoracotomy EXAMS: CPT CODE: [id number] XR CHEST 1 V 11352 PROCEDURE: Chest, AP on 07/23/2018 at 0442 hours. INDICATION: Status post thoracotomy. Recurrent spontaneous right-sided pneumothorax. COMPARISON: Chest radiographs dated 07/22/2018. FINDINGS: Support tubes, catheters, devices: Large bore right- sided chest tubes have been removed. Small right [...] By: [email or web address] Orig Print D/T: S: 07/23/2018 (8776) PAGE 1 Signed Report - XR CHEST 1 V 2018-07-22 14:09:00 FAX: Fang Alicia [phone] [place]: St: [facility] FAX: Cole Al MD [phone] Name: PEARL FERRARA [facility] : 1995 Age/S: 22/M [address] [place] [address] Unit #: [id number] Loc: [address] [place] [address] Phys: Yudith Alicia NP Acct: [id number] Dis Date: Status: ADM IN PHONE #: [phone] Exam Date: 07/22/2018 140 FAX #: [phone] Reason: F/U PNEUMOTHORAX EXAMS: CPT CODE: [id number] XR CHEST 1 V 13530 Clinical Indication: Follow-up pneumothorax Comparison: Chest radiograph performed earlier today FINDINGS: Stable position of 2 right-sided chest tubes. Stable small right hydropneumothorax with postsurgical changes at the right lung apex. Right basilar airspace opa city likely represents atelectasis. The left lung is clear. The cardiac silhouette is within normal limits of size. Midline trachea. No acute osseous abnormalities. IMPRESSION: Stable small right hydropneumothorax. SL: [id number]-H at 1409 Reported and signed by: Solitario Stevens M.D. CC: Yudith Alicia LAMBSKIN TRIMMER; Cole Cordoba MD Technologist: RT Sulaiman(R) Trnscrd Date/Time/By: 07/22/2018 (7055) : By: [email or web address] Orig Print D/T: S: 07/22/2018 (5860) PAGE 1 Signed Report - XR CHEST 1 V 2018-07-22 09:08:00 FAX: Fang Alicia [phone] [place]: St: ADM FAX: Cole Al MD [phone] Name: PEARL FERRARA [facility] : 1995 Age/S: 22/M [address] [place] [address] Unit #: [id number] Loc: [address] [address] Phys: Yudith Alicia NP Acct: [id number] Dis Date: Status: ADM IN PHONE #: [phone] Exam Date: 07/22/2018 0549 FAX #: [phone] Reason: S/P Thoracotomy EXAMS: CPT CODE: [id number] XR CHEST 1 V 70288 EXAM: XR CHEST 1 VIEW DATE: 07/22/2018 [...] base and right apical atelectatic changes. SL: [id number] at 0908 Reported and signed by: Peter Duque D.O. CC: Yudith Alicia LAMBSKIN TRIMMER; Cole Cordoba MD Technologist: Mike Clarke, RT(R); Susana Gracia, RT(R) Trnscrd Date/Time/By: 07/22/2018 (0908) : By: [email or web address] Orig Print D/T: S: 07/22/2018 (9063) PAGE 1 Signed Report - XR CHEST 1 V 2018-07-22 09:07:00 FAX: Fang Alicia [phone] [place]: St: [facility] FAX: Cole Al MD [phone] Name: PEARL FERRARA [facility] : 1995 Age/S: 22/M [address] [place] [address] Unit #: [id number] Loc: [address] [place] [address] Phys: Yudith Alicia NP Acct: [id number] Dis Date: Status: ADM IN PHONE #: [phone] Exam Date: 07/22/2018 0908 FAX #: [phone] Reason: F/U PNEUMO. EXAMS: CPT CODE: [id number] XR CHEST 1 V 28007 EXAM: XR CHEST 1 VIEW DATE: 07/22/2018 12:00 PM : 1995; Age: 22 years y/o Male INDICATION: F/U PNEUMO. COMPARISON: July 22, 2018 at 451 TECHNIQUE: AP chest. FINDINGS/ IMPRESSION: Lines, tubes and hardware: S table right-sided chest tubes. Heart, mediastinum and lungs: The heart size is normal for technique. The mediastinal contours are normal. Pulmonary vascularity is normal. Stable small right apical pneumothorax. Right lung base and right apical atelectatic changes. SL: [id number] at 0907 Reported and signed by: Peter Duque D.O. CC: Yudith Alicia LAMBSKIN TRIMMER; Cole Cordoba MD Technologist: RT Eliot(R) Trnscrd Date/Time/By: 07/22/2018 (0907) : By: [email or web address] Orig Print D/T: S: 07/22/2018 (8275) PAGE 1 Signed Report BASIC METABOLIC PANEL [...] CA) 8.6 mg/dL 8.0-10.5 N CBC W/AUTO [id number] 06:50:00* Test Item Value Reference Range Interpretation [...] = MDIFF) NO - XR CHEST 1 [id number] 08:03:00 FAX: Fang Alicia [phone] [place]: St: [facility] FAX: Cole Al MD [phone] Name: PEARL FERRARA [facility] : 1995 Age/S: 22/M [address] [place] [address] Unit #: [id number] Loc: G.[address] [place] [address] Phys: Yudith Alciia LAMBSKIN TRIMMER Acct: [id number] Dis Date: Status: ADM IN PHONE #: [phone] Exam Date: 07/21/2018 0647 FAX #: [phone] Reason: S/P Thoracotomy EXAMS: CPT CODE: [id number] XR CHEST 1 V 89905 Chest single view 07/21/2018 HISTORY: Status post [...] This may represent atelectasis or pneumonia. SL: [id number] at 0803 Rep orted and signed by: Buck Malik M.D. CC: Yudith Andrade LAMBSKIN TRIMMER; Cole Cordoba MD Technologist: Emely Elliott, RT(R); Linda Granados, RT(R) Trnscrd Date/Time/By: 07/21/2018 (0803) : By: [email or web address] Orig Print D/T: S: 07/21/2018 (805) PAGE 1 Signed Report BASIC METABOLIC [id number] 05:16:00* Test Item Value Reference Range Interpretation [...] CA) 8.6 mg/dL 8.0-10.5 N CBC W/AUTO [id number] 04:39:00* Test Item Value Reference Range Interpretation [...] = MDIFF) NO - XR CHEST 1 [id number] 09:19:00 FAX: Fang Alicia [phone] [place]: St: ADM FAX: Cole Al MD [phone] Name: PEARL FERRARA [facility] : 1995 Age/S: 22/M [address] [place] [address] Unit #: [id number] Loc: [address] [place] [address] Phys: Yudith Alicia LAMBSKIN TRIMMER Acct: [id number] Dis Date: Status: ADM IN PHONE #: [phone] Exam Date: 07/20/2018 0709 FAX #: [phone] Reason: S/P Thoracotomy EXAMS: CPT CODE: [id number] XR CHEST 1 V 24170 Chest single view 07/20/2018 HISTORY: Thoracotomy Comparison [...] Stable medial right base atele ctasis/infiltrate. SL: [id number] Elect ronically Signed by Jesus Malik on 2018 at 0919 Reported and signed by: Buck Malik M.D. CC: Yudith Alicia LAMBSKIN TRIMMER; Cole Cordoba MD Technologist: Emely Elliott, RT(R); Linda Granados RT(R) Trnscrd Date/Time/By: 07/20/2018 (918) : By: [email or web address] Orig Pr int D/T: S: 07/20/2018 (70) PAGE 1 Signed Report BASIC METABOLIC [id number] 05:04:00* Test Item Value Reference Range Interpretation [...] CA) 8.5 mg/dL 8.0-10.5 N CBC W/AUTO [id number] 04:48:00* Test Item Value Reference Range Interpretation [...] = MDIFF) NO - XR CHEST 1 [id number] 13:48:00 FAX: Leonel Rey [phone] [place]: St: ADM FAX: Cole Al MD [phone] Name: PEARL FERRARA [facility] : 1995 Age/S: 22/M [address] [place] [address] Unit #: [id number] Loc: [address] [address] Phys: Leonel Oro MD Acct: [id number] Dis Date: Status: ADM IN PHONE #: [phone] Exam Date: 07/19/2018 1255 FAX #: [phone] Reason: S/P VATS EXAMS: CPT CODE: [id number] XR CHEST 1 V 30896 EXAM: XR CHEST 1 VIEW DATE: 07/19/2018 12:13 PM : 1995; Age: 22 years y/o Male INDICATION: S/P VATS COMPARISON: July 18, 2018 TECHNIQUE: AP chest. FINDINGS/ IMPRESSION: Lines, tubes and hardware: Two separate right-sided chest tubes are seen with tip overlying the right medial upper thorax and right mid thorax. Heart, medi astinum and lungs: The heart size is normal for technique. The mediastin al contours are normal. Interval significant improvement in the aeration of the right lung, status post VATS. Small opacity is noted involving t he right lung apex, which may represent atelectasis. Minimal right lung base airspace disease. No significant right pneumothorax is seen. SL: [id number] at 1348 Reported and signed by: Peter Duque D.O. CC: Leonel Oro MD; Cole Cordoba MD Technolo gist: Veronika Bass, RT(R) Trnscrd Date/Time/B y: 07/19/2018 (1348) : By: [email or web address] Orig Print D/T: S: 07/19/2018 (13 34) PAGE 1 Signed Report BASIC METABOLIC [id number] 13:03:00* Test Item Value Reference Range Interpretation [...] = CA) 8.5 mg/dL 8.0-10.5 N HGB [id number] 12:56:00* Test Item Value Reference Range Interpretation Comments HEMOGLOBIN (test code = HGB) 16.3 g/dL 12.5-16.9 N HEMATOCRIT (test code = HCT) 47.6 % 37.5-50.7 N COMMENTS: On admissionARTERIAL BLOOD [id number] 12:35:00* Test Item Value Reference Range Interpretation [...] = ADILIA) Room Air Performed by certified electrode cleaning machine operator at [facility] ABG TEMPERATURE (test code = TEMPA) 98.0 F ABG SITE (test code = SITEA) Art line TCO2 ARTERIAL (test code = TCO2A) 26 PROTHROMBIN [id number] 09:06:00* Test Item Value Reference Range Interpretation [...] Infarction (to prevent recurrent infarct). THROMBOPLASTIN TIME [id number] 09:06:00* Test Item Value Reference Range Interpretation Comments THROMBOPLASTIN TIME PARTIAL (test code = PTT) 29.9 Seconds 25.0-39. 5 N Therapeutic Range: 50.4 - 88.3 Seconds Effective 05/21/2018 BASIC METABOLIC [id number] 09:06:00* Test Item Value Reference Range Interpretation [...] CA) 9.4 mg/dL 8.0-10.5 N CBC W/AUTO [id number] 08:56:00* Test Item Value Reference Range Interpretation [...] MDIFF) NO COMMENTS: CBC with PlateletsBASIC METABOLIC [id number] 08:55:00* Test Item Value Reference Range Interpretation [...] CA) 9.0 mg/dL 8.0-10.5 N CBC W/AUTO [id number] 08:16:00* Test Item Value Reference Range Interpretation [...] = MDIFF) NO - XR CHEST 1 [id number] 16:27:00 FAX: Jose Peña MD [phone] [place]: St: [facility] FAX: Cole Al MD [phone] Name: PEARL FERRARA [facility] Amanda Cotto : 1995 Age/S: 22/M [address] [place] [address] Unit #: [id number] Loc: [address] [address] Phys: Jose Grossman MD Acct: [id number] Dis Date: Status: ADM IN PHONE #: [phone] Exam Date: 07/18/2018 1449 FAX #: [phone] Reason: F/U PNEUMOTHORAX. EXAMS: CPT CODE: [id number] XR CHEST 1 V 32269 Portable chest performed July 18, 2018 1451 [...] decrease in the size of the right pneumotho rax. 2. 2 right pleural chest tubes are in place. at 8171 Reported and signed by: Tonya Ramirez M.D. CC: Jose Grossman MD; Cole Cordoba MD Technologist: Ruben berg RT(R) Trnscrd Date/Time/By: 07/18/2018 ( 3218) : By: [email or web address] Orig Print D/T: S: 07/18/2018 (8169) PAGE 1 Signed Report - SP FLUOROSCOPY 0-60 [id number] 14:41:00 FAX: Dale Heredia NP [phone] [place]: St: ADM FAX: Cole Al MD [phone] Name: PEARL FERRARA [facility] [place]to : 1995 Age/S: 22/M [address] [place] [address] Unit #: [id number] Loc: [address] [place] [address] Phys: Dale Heredia NP Acct: [id number] Dis Date: Status: ADM IN PHONE #: [phone] Exam Date: 07/18/2018 1425 FAX #: [phone] Reason: chesty tube placement EXAMS: CPT CODE: [id number] SP FLUOROSCOPY 0-60 MIN 31696 PROCEDURE: Placement of percutaneous right chest tube unde r fluoroscopy guidance. INDICATION: Right pneumothorax. COMPARISON: None. TECHNICAL: Fluoroscopic time was 2.1 minutes . Reference Air Kerma Dose 19 mGy. Medications: 4 m g morphine IV PROCEDURE: The procedure, risks, benefits [...] was performed with Seldinger technique. A 12 Sami pigtail cath was advanced over guidewire into th e right pneumothorax. Final imaging was performed. The catheter was secure d to the skin. Sterile dressing was applied. [...] 1 Signed Report (CONTINUED) FAX: Dale Heredia NP [phone] [place]: GC St: ADM FAX: Cole Young MD [phone] Name: PEARL FERRARA [facility] : 1995 Age/S: 22/M [address] Unit #: [id number] Loc: [place] [address] Phys: Dale Heredia NP Acct: [id number] Dis Date: Status: ADM IN PHONE #: [phone] Exam Date: 07/18/2018 1 425 FAX #: [phone] Reason: chesty tube placement EXAMS: CP T CODE: [id number] SP FLUOROSCOPY 0-60 MIN 61776 <Continued> at 1441 Reported and signed by: Peter Duque D.O. CC: Dale Heredia NP; Cole Cordoba MD Technologist: Bushra Novak RT(R); Fariha Lo RT(R)(CT) Trnscrd Date/Time/By: 07/18/2018 (1440) : By: [email or web address] Orig Print D/T: S: 07/18/2018 (7020) PAGE 2 Signed Report - XR CHEST 2 [id number] 10:44:00 FAX: Cole Al MD [phone] [place]: St: ADM Name: PEARL HOPPER [facility] : [birth year] Age/S: 22/M [address] [place] [address] Unit #: [id number] Loc: [address] [place] [address] Phys: Cole Cordoba MD Acct: [id number] Dis Date: Status: ADM IN PHONE #: [phone] Exam Date: 07/18/2018 0845 FAX #: [phone] Reason: F/U ON RIGHT PTX WITH CHEST TUBE EXAMS: CPT CODE: [id number] XR CHEST 2 V 94213 Chest 2 views 07/18/2018 HISTORY: Pneumothorax Comparison [...] with the kori mcduffie's nurse on 5S ([facility]) by Dr. Malik at 10:38 AM on 07/18/2018. SL: [id number] at 1044 Reported and signed by: Buck Malik M.D. CC: Cole Cordoba MD Techno logist: Preeti Ornelas, RT(R) Trnscrd Date/Time /By: 07/18/2018 (8600) : By: [email or web address] Orig Print D/T: S: 07/18/2018 ( 1008) PAGE 1 Signed Report - CT CHEST W/O [id number] 10:42:00 Name: PEARL FERRARA [facility] Amanda Cotto : 1995 Age/S: 22 / M [address] [place] [address] Unit #: [id number] Loc: [place] [address] Phys: Marcus Benavidez MD Acct: [id number] Di s Date: Status: ADM IN PHONE #: Exam Date: 07/18/2018 0829 FAX #: Reason: PTX EXAMS: CPT CODE: [id number] CT CHEST W/O CONTRAST 97323 PROCEDURE: CT CHEST WITHO UT CONTRAST INDICATION: [...] discussed with the patient's nurse on 5S (Leda) by Dr. Malik at 10:38 AM on 07/18/2018. SL: [id number] at 1042 Reported and sig jonas by: Buck Malik M.D. PAGE 1 Signed Report (CONTINUED) Name: PEARL FERRARA [facility] : 1995 Age/S: 22 / M [address] [place] [address] Blvd Unit #: [id number] Loc: [facility] [place] [address] Phys: Marcus Benavidez MD Acct: [id number] Dis Date: Status: ADM IN PHONE #: [phone] Exam Date: 07/18/2018828 FAX #: [phone] Reason: PTX EXAMS: CPT CO DE: [id number] CT CHEST W/O CONTRAST 79690 <Continued> CC: Cole Cordoba MD Technologist:Larry Cabral, RT(R) CTDI: DLP: Trnscb Date/Time: 07/18/2018 (1045) [email or web address] Orig Print D/T: S: 07/18/2018 (7992) PAGE 2 Signed Report BASIC METABOLIC PANEL 2018-07-18 05:04:00* Test Item Value Reference Range Interpretation [...] = LDL) 60 mg/dL 0-100 N <100 [id number] NEAR OPTIMAL/ABOVE [id number] HZBGVQMXNC162-817 HIGH>HW=842 VERY HIGH*Guidelines provided by the National Cholesterol EducationProgram Adult Treatment Panel III CBC W/AUTO [id number] 04:39:00* Test Item Value Reference Range Interpretation [...] = MDIFF) NO - XR CHEST 1 [id number] 06:59:00 FAX: Cole Al MD [phone] [place]: St: ADM Name: PEARL HOPPER [facility] : [birth year] Age/S: 22/M [address] [place] [address] Bl Unit #: [id number] Loc: [place] [address] Phys: Cole Cordoba MD Acct: [id number] Dis Date: Status: ADM IN PHONE #: [phone] Exam Date: 07/17/2018 06 FAX #: [phone] Reason: F/U ON RIGHT PTX WITH CHEST TUBE EXAMS: CPT CODE: [id number] XR CHEST 1 V 03853 Chest, single view dated 07/17/2018 at 5:52 AM. HISTORY: Follow-up right pneumothorax. Comparison is made to a prior study dated 07/17/2018 at 12:52 AM. T he positioning of the right-sided chest tube has not significantly changed in the interim. A pneumothorax persists in the right base with associate d right basilar volume loss. The cardiomediastinal shadow is stable. The left lung appears clear. Postoperative changes are identified in both fang ng apices. The pulmonary vasculature is normal in caliber. No acute pleu ral space abnormalities are detected. IMPRESSION: 1. St able right pneumothorax with right basilar volume loss. SL: 13 1 at 0659 Reported and signed by: uSkhjinder Whiting M.D. CC: Tash Cordoba MD Technologist: Lesia turpin, RT(R) Trnscrd Date/Time/By: 07/17/2018 (065 9) : By: [email or web address] Orig Print D/T: S: 07/17/2018 (8906) PAGE 1 Signed Report T4 [id number] 06:30:00* Test Item Value Reference Range Interpretation Comments T4 FREE (test code = T4F) 1.3 ng/dL 0.77-1.61 N THYROID STIMULATING [id number] 06:30:00* Test Item Value Reference Range Interpretation Comments THYROID STIMULATING HORMONE (test code = TSH) 1.14 0.42-5.4 7 N Results in abi- International Units/mL - XR CHEST 1 [id number] 01:13:00 FAX: Mario Newman MD [phone] [place]: St: REG Name: PEARL HOPPER [facility] : [birth year] Age/S: 22/M [address] [place] [address] Unit #: [id number] Loc: [place] [address] Phys: Mario Flores MD Acct: [id number] Dis Date: Status: REG ER PHONE #: [phone] Exam Date: 07/17/2018 010 FAX #: [phone] Reason: chest tube placement EXAMS: CPT CODE: [id number] XR CHEST 1 V 50081 Chest x-ray 1 view History: Chest tube [...] M.D. CC: Mario Flores MD Technologist: Veronika Bass RT(R); RT [facility] Date/Time/By: 07/17/2018 (0113) : By: [email or web address] Orig Print D/T: S: 07/17/2018 (0116) PAGE 1 Signed Report BASIC METABOLIC [id number] 00:27:00* Test Item Value Reference Range Interpretation [...] = CA) 8.6 mg/dL 8.0-10.5 N PROTHROMBIN [id number] 00:14:00* Test Item Value Reference Range Interpretation [...] Infarction (to prevent recurrent infarct). THROMBOPLASTIN TIME [id number] 00:14:00* Test Item Value Reference Range Interpretation Comments THROMBOPLASTIN TIME PARTIAL (test code = PTT) 31.4 Seconds 25.0-39. 5 N Therapeutic Range: 50.4 - 88.3 Seconds Effective 05/21/2018 CBC W/AUTO [id number] 00:11:00* Test Item Value Reference Range Interpretation [...] = MDIFF) NO - XR CHEST 2 [id number] 23:18:00 FAX: Mario Newman MD [phone] [place]: St: PRE Name: PEARL HOPPER [facility] : 12/[birth year]/18 [birth year] Age/S: 22/M [address] [place] [address] Blvd Unit #: [id number] Loc: [address] [place] [address] Phys: Mario Flores MD Acct: [id number] Dis Date: Status: PRE ER PHONE #: [phone] Exam Date: 07/16/20182313 FAX #: [phone] Reason: sob EXAMS: CPT CODE: [id number] XR CHEST 2 V 13708 Chest, 2 view dated 07/16/2018. HISTORY: Shortness [...] 07/16/2018 at 11:15 PM. SL: 131 at 8197 Reported and signed by: Bree Humphrey CC: Mario Flores MD Technologist: RT oBb(Alessandra Colon te/Time/By: 07/16/2018 (2501) : By: Brittny James Print D/T: S: 07/16 (8032) PAGE 1 Signed Report
== END 2019-11-18 11:26 | disposition home or self-care (01) ==
LOC: FSED 10:53
DX: J06.9 Acute upper respiratory infection, unspecified (principal); J30.2 Other seasonal allergic rhinitis
CPT/HCPCS: 99283